=== PATIENT | female | born 1980 | race Caucasian/White ===

== ENCOUNTER 2019-12-08 09:59 | Outpatient (REF) | payer MEDICAID, SELFPAY ==
[2019-12-08 21:41] LABS: Abs Immature Grans 0.02 k/cumm (0.0-0.09); Absolute Basophil Count 0.03 k/cumm (0.0-0.2); Absolute Eosinophil Count 0.27 k/cumm (0.0-0.7); Absolute Lymphocyte Count 2.02 k/cumm (1.2-3.4); Absolute Monocyte Count 0.37 k/cumm (0.11-0.7); Basophils % 0.4; HCT 38.2 % (36.0-46.0); HGB 13.7 g/dL (12.0-15.5); Immature Grans % 0.3 %; Lymphocytes % 30.1; Mean Corp. HGB Concentration 35.9 g/dL (32.0-36.0); Mean Corpuscular Hemoglobin 30.8 pg (27.0-33.0); Mean Corpuscular Volume 85.8 fL (80-95); Mean Platelet Volume 10.5 fL (8.0-11.0); Monocytes % 5.5; Neutrophils % 59.7; Platelet Count 329 x1000/uL (130-400); RBC 4.45 m/cumm (4.00-5.20); RBC Distribution Width 14.1 % (11.7-14.6); White Blood Cell Count 6.71 k/cumm (4.4-10.8)
[2019-12-08 22:35] LABS: ALT 21 U/L (14-59); AST 16 U/L (15-37); Albumin 3.6 g/dL (3.4-5.0); Alkaline Phosphatase 56 U/L (46-116); Anion Gap 13.5 mmol/L (3-11); BUN 10 mg/dL (7-18); Bilirubin, Total 0.2 mg/dL (0.2-1.0); CO2 20.5 mmol/L (21.0-32.0); CREATININE 0.89 mg/dL (0.55-1.02); Calcium 8.7 mg/dL (8.5-10.1); Calculated LDL 88 mg/dL (<100); Chloride 106 mmol/L (98-107); Cholesterol 157 mg/dL (<200); Glucose 91 mg/dL (74-106); HDL Cholesterol 51 mg/dL (40-60); Sodium 140 mmol/L (136-145); TSH (W/Ref FT4) 2.05 uIU/mL (0.36-3.74); Total Protein 7.4 g/dL (6.4-8.2); Triglyceride 93 mg/dL (<150); Vitamin B12 188 pg/mL (193-986)
[2019-12-10 04:31] LABS: Vitamin D 25 Total 25.1 ng/ml (30-100)
== END 2019-12-08 10:19 ==
LOC: NCHCN 09:59
PROVIDERS: Visit Provider Nurse Practitioner Family
DX: F31.9 Bipolar disorder, unspecified (principal)
CPT/HCPCS: 80053; 80061; 82306; 82607; 84443; 85025

== ENCOUNTER 2020-11-28 17:01 | Outpatient (REF) | payer MEDICAID, SELFPAY ==
--- NOTE | 2020-11-28 15:30 | PAPFT_PTH ---
PATIENT: Elsa Amaya LOC: [facility]#:[id number] AGE/SX: 40/F ROOM: RE11/28/[address]: Felicia Ivan : 1980 BED: DIS: 11/28/2020 SPEC #: [id number] RECD: 11/29/20 13:12 STATUS: DANI REKimi #: [id number] SONJA: 11/28/20 15:[address]: Felicia Ivan DEPT: [facility] Cytology RECD BY: Penny Ramirez ENTERED: 11/29/20 13:12 SP TYPE: PAPFT OTHR DR: Maddy Local Tissues: 1 - CX/ENDOCX FOR PAP SMEARS Procedures: PAP THIN PREP/UVM Screening HPV DNA PROBE Comments: [id number]
--- OUTSIDE RECORDS SUMMARY | 2020-11-28 17:06 | XMS_ITS ---
:1980 Author Care Team Providers Name Role Phone [facility] Primary Care Provider Allergies Code Code System Name Reaction Severity Status Onset 397840 RxNorm House Dust ? ? Active ? 009763 RxNorm Mold ? ? Active ? Medications Name Status Start Date Stop Date ? ? desvenlafaxine ER 50 mg tablet,extended release 24 hr Active ? Not available Take 1 tablet every day by oral route. Lamictal 100 mg tablet Active ? Not avail able Take 1 tablet every day by oral route. Ortho Tri-Cyclen (28) Active ? Not availa ble Proair Digihaler 90 mcg/actuation aerosol powder breath act, sen sor Active ? Not available Inhale 2 puffs every 4 hours by inhalation route. Symbicort 160 mcg-4.5 mcg/actuation HFA aerosol inhaler Active ? Not available Inhale 2 puffs twice a day by inhalation route. Problems Name Status Onset Date Source ? 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 Bipolar Disorder Active 12/23/2019 ? Asthma Active 12/23/2019 ? Procedures None recorded. Results Lab Results None recorded. Past Encounters 12/25/2019 Asthma Stephanie Munoz MD: [address] [place] [address] Dr hernandez [facility], [place] [address], Ph. Social History Tobacco Smoking Status Former Smoker Notes: off an d on as teenager Vaccine List Vaccine Type pneumococcal polysaccharide PPV23 06/10/2019 Tdap 06/10/2016 06/10/2016 Plan of Care Reminders Provider Appointments None ? ? recorded. Lab None ? ? recorded. Referral None ? ? recorded. Procedures None ? ? recorded. Surgeries None ? ? recorded. Imaging None ? ? recorded. Vitals Height Weight BMI Blood Pressure 175.26 cm 87.95 kg 28.6 kg/m2 110/60 mm[Hg]
== END 2020-11-28 17:02 | disposition home or self-care (01) ==
LOC: NCHCN 17:01
PROVIDERS: Visit Provider Nurse Practitioner Community Health
DX: Z12.4 Encounter for screening for malignant neoplasm of cervix (principal); Z11.51 Encounter for screening for human papillomavirus (HPV)
CPT/HCPCS: 88142; 87624

== ENCOUNTER 2022-08-03 13:03 | Outpatient (CLI) | payer MEDICAID, SELFPAY ==
--- NOTE | 2022-08-03 | DI.RAD_ITS ---
Exam(s) XR CHEST 2V PA LATERAL EXAM: XR CHEST 2V PA LATERAL CLINICAL HISTORY: COUGH R05.8 ? PNA TECHNIQUE: 2D digital imaging was performed. COMPARISON: No exams were available for comparison FINDINGS: HEART: Normal size. Aorta: Not dilated. PULMONARY VASCULATURE: Normal. LUNGS: Clear. PLEURAL SPACE: No pleural effusion or pneumothorax. BONE:Unremarkable for age. IMPRESSION: No acute abnormality. DATA REPOSITORY: RADIATION DOSE DELIVERED:
== END 2022-08-03 13:23 ==
LOC: DI 13:09
PROVIDERS: PCP Nurse Practitioner Family; Visit Provider Registered Nurse
DX: R05.8 Other specified cough (principal)
CPT/HCPCS: 71046

== ENCOUNTER 2024-03-12 16:19 | Outpatient (REF) | payer MEDICAID, SELFPAY ==
--- OUTSIDE RECORDS SUMMARY | 2024-03-12 16:21 | XMS_ITS | Encounter Summary ---
Author Organization [facility] Address [address] [place] [address] Care Team Providers Care Senior Web Designer Name Role Phone Felicia Ivan ALYSSA Primary Care Provider [phone] Reason for Visit * Reason Onset Date Comments Appointment Related 12/24/2022 Encounter Details Date Type Department Care Team (Late st Contact Info) Description 12/24/2022 Telephone [facility] Dermatology 3rd Floor [address] [id number] Sharri Mistry MD [address] [facility], [address] 5 [place] [address] Appointment Related Social History Tobacco Use Types Packs/Day Years Used Date Smoking Tobacco: Never Smokeless Tobacco: Never Interpersonal Safety Answer Date Record ed Physically Hurt Never 02/14/2020 Verbally Threaten Not on file 02/14/2020 Sex and Gender Information Value Date Recorded Sex Assigned at Not on file Gender Identity Not on file Sexual Orientation Not on file documented as of this encounter Miscellaneous Notes * Telephone Encounter - Kavitha Penn MA - 12/25/2022 0907 EDT Called patient and relayed Sharri Mistry MD would like to see her every couple of years, but at herage, she would like to start screening for elevated potassium once a year. I relayed that lab was ordered yesterday, 12/24/2022. Patient verbalized understanding and had no further questions or concerns. KAVITHA PENN MA 12/25/2022 9:08 * Telephone Encounter - Sharri Mistry MD - 12/24/2022 1608 EDT Sounds good, I can see her every couple of years. At her age we start screening for elevated potassium once a year. I can write for that lab now. Sharri Mistry MD 12/24/2022 16:11 * Telephone Encounter - Anamaria Phillip - 12/24/2022 1020 EDT Patient called to cancel 12/26/2022 acne f/u appointment. Patient states her acne is doing ok and she does not have any concerns at this time. Patient states the spironolactone (ALDACTONE) 100 mg tablet and tretinoin (RETIN-A) 0.025 % cream is working very well for her. Patient is wondering if she will need an appointment in the future to be able to refill these medications. Patient confirmed call back number if needed. documented in this encounter Plan of Treatment Upcoming Encounters Date Type Department Care Team (Late st Contact Info) Description 04/02/2024 14:30 EDT Office Visit [facility] Pulmonology [address] [facility], [place] [address] Ray Samson MD [address] [facility], [address] [place] [address] documented as of this encounter Visit Diagnoses Diagnosis Medication monitoring encounter- Primary Encounter for therapeutic drug monitoring documented in this encounter Care Teams Senior Web Designer Relationship Specialty Start Date End Date Felicia Ivan FNP [address], [address] [place] [address] PCP - General 12/27/20 documented as of this encounter
--- OUTSIDE RECORDS SUMMARY | 2024-03-12 16:21 | XMS_ITS | Encounter Summary ---
Author Organization [facility] Address [address] [place] [address] Care Team Providers Care Plant Custodian Name Role Phone FeleciaFelicia flores LAYSSA Primary Care Provider Reason for Visit * Reason Comments Skin Lesion Skin lesion on leg F BSE room 7 Encounter Details Date Type Department Care Team (Late st Contact Info) Description 12/28/2020 15:40 EDT Office Visit [facility] Dermatology 5th [address] [address] Sharri Mistry MD [address] [place] [address], [address] 5 [place] [address] Molluscum contagiosum (Primary Dx); Acne vulgaris; History of basal cell carcinoma; Scar Social History Tobacco Use Types Packs/Day Years Used Date Smoking Tobacco: Never Smokeless Tobacco: Never Interpersonal Safety Answer Date Record ed Physically Hurt Never 02/14/2020 Verbally Threaten Not on file 02/14/2020 Sex and Gender Information Value Date Recorded Sex Assigned at Not on file Gender Identity Not on file Sexual Orientation Not on file documented as of this encounter Ordered Prescriptions Prescription Sig Dispensed Refills Start Date End Da te tretinoin (RETIN-A) 0.025 % cream Apply a pea sized amount to the whole face twice weekly at night, can increase to nightly as tolerated 45 g 4 12/28/2020 spironolactone (ALDACTONE) 100 mg tabletIndications:Acne vulgaris Take 1 Tablet by mouth daily. 30 Tablet 5 12/28/2020 11/17/2021 documented in this encounter Progress Notes * Michelle Ly MD - 12/28/2020 1500 EDT Dermatology Outpatient Visit Note Chief Complaint Patient presents with ??? Skin Lesion Skin lesion on leg FBSE room 7 Dermatologic History: History of BCC Last Dermatology office visit: 02/2020 SUBJECTIVE Ms. Amaya is a 40 y.o. female who presents for follow up for the complaint listed above. She has the history of molluscum that was biopsied. When asked, she is not around children and doesn't teach. She did have an HIV test after she was with her current partner which was negative. 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 For acne used the tretinoin twice but this made her face red and dry so she stopped. Spironolactonehas been working well. Left protestant and left nasal ala. Per referral notes 02/25/2020: hx of BCC left nose and chin removed surgically. OBJECTIVE VS: There were no vitals taken for this visit. 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 Cutaneous full body examination including the hair, scalp, face, eyelids, lips, neck, chest, back, abdomen, all four extremities, hands, feet, digits and nails was performed.The examination was significant for the following: -Left nasal ala and left protestant pink to skin colored papules with central keratin/hyperkeratotic core -Acne scars scattered on face -Few closed comedones scattered on face -Well healed surgical scar on the left infraorbital crease ASSESSMENT/PLAN 1. Acne vulgaris - comedonal and hormonal. Hormonal component under good control, still with comedones and scarring that would benefit from tretinoin. -Recommend starting tretinoin 0.025% cream, a pea sized amount to the whole face three nights per week for the first 2 weeks, then increase to nightly as tolerated. If too red/dry/peeling recommend decreasing to once weekly. -Side effects of redness, dryness and peeling were discussed - Continue spironolactone (ALDACTONE) 100 mg tablet; Take 1 Tablet by mouth daily. Dispense: 30 Tablet; Refill: 5 2. Molluscum contagiosum - Unclear etiology possibly spreading among self. No immunodeficiency other than IgA which should not be playing a role -Recommend using the tretinoin 0.05% pt already has to irritate the lesion and avoid measure that would spread the viral core -Plan to f/u in 6 months with tretinoin tx then reassess 3. History of basal cell carcinoma 4. Scar -No clinical evidence of recurrence. The importance of sunscreen use, sun avoidance and self-examination was discussed, of which the patient showed a good understanding. Return in about 6 months (around 06/30/2021) for acne, history of skin cancer. She will f/u as planned or in the interim should problems arise. Sharri Mistry MD 12/28/2020 21:18 * Jorge Domingo MA - 12/28/2020 1540 EDT Review of Systems Constitutional: Negative for fatigue, fever and unexpected weight change. HENT: Negative for mouth sores. Eyes: Negative for pain. Respiratory: Negative for cough and shortness of breath. Cardiovascular: Negative for chest pain and palpitations. Gastrointestinal: Negative for abdominal pain, blood in stool, constipation, diarrhea, nausea and vomiting. Genitourinary: Negative for dysuria, frequency and hematuria. Musculoskeletal: Negative for myalgias, joint swelling, arthralgias and muscle stiffness in the morning. Skin: Negative for rash. Neurological: Negative for numbness and headaches. Endo/Heme/Allergies: Does not bruise/bleed easily. Psychiatric/Behavioral: Negative for sleep disturbance. The patient is not nervous/anxious. JORGE DOMINGO MA 12/28/2020 15:50 documented in this encounter Plan of Treatment Upcoming Encounters Date Type Department Care Team (Late st Contact Info) Description 04/02/2024 14:[address] [facility] Pulmonology [address] [facility], [place] [address] Ray Samson MD [address] [place] [address], [address] [place] [address] documented as of this encounter Visit Diagnoses Diagnosis Molluscum contagiosum- Primary Acne vulgaris Other acne History of basal cell carcinoma Personal history of other malignant neoplasm of skin Scar Scar condition and fibrosis of skin documented in this encounter Discontinued Medications Medication Sig Discontinue Reason Start Date End Da te tretinoin (RETIN-A) 0.05 % creamIndications:Sebac eous hyperplasia,Acne vulgaris Apply topically to affected area at bedtime. Sparing folds of the nose and eyelids. Do not apply immediately after washing, may sting. Alternate therapy 03/09/2020 12/28/2020 spironolactone (ALDACTONE) 100 mg tabletIndications:Acne vulgaris TAKE 1 TABLET BY MOUTH DAILY Reorder 11/17/2020 12/28/2020 documented as of this encounter Historical Medications * This list may reflect changes made after this encounter. Medication Sig Dispensed Refills Start Date End Date acetylcysteine (P-DACRHW-A-CYSTEINE MISC) by misc (non-drug; combo route) route. norethindrone-e.estradiol- iron ( ORAL) Take by mouth. added in this encounter Care Teams Plant Custodian Relationship Specialty Start Date End Date Felicia Ivan FNP [employer], [address] [place] [address] PCP - General 12/27/20 documented as of this encounter
--- OUTSIDE RECORDS SUMMARY | 2024-03-12 16:21 | XMS_ITS | Encounter Summary ---
Author Organization [facility] Address [address] [place] [address] Care Team Providers Care Firer Glost Kiln Name Role Phone Felicia Ivan ALYSSA Primary Care Provider [phone] Reason for Visit * Reason Onset Date Comments Appointment Related 02/13/2023 Encounter Details Date Type Department Care Team (Late st Contact Info) Description 02/13/2023 Telephone [facility] [address] [place], [place] [address] Elvi Preciado, CYN Appointment Related Social History Tobacco Use Types [...] encounter Miscellaneous Notes * Telephone Encounter - Rani Echavarria - 02/19/2023 1001 EDT Spoke with pt last week. She was confused between Ortho and Spine. She is all set for the 03/08/23 appt, with her work. * Telephone Encounter - Elvi Preciado RN - 02/13/2023 0854 EDT Pt reports that she was unaware that she had an appointment on 02/22 as she thought her injection was scheduled on 03/19 which is actually her follow up with Sharona Moore. She states she is unable to keep the appointment due to work commitments and expresses frustration that she was not aware of 02/22 appointment so she could take time off from work. Apologized to patient regarding scheduling confusion. Please call to reschedule. Thank you. documented in this encounter Plan of Treatment Upcoming Encounters Date Type Department Care Team (Late st Contact Info) Description 04/02/2024 14:30 EDT Office Visit [facility] Pulmonology [address] [facility], [place] [address] Ray Samson MD [address] [facility], [address] [place] [address] documented as of this encounter Visit Diagnoses Not on filedocumented in this encounter Care Teams Firer Glost Kiln Relationship Specialty Start Date End Date Felicia Ivan FNP [address] [place] [address], [address] [place], [place] [id number] PCP - General 12/27/20 documented as of this encounter
--- OUTSIDE RECORDS SUMMARY | 2024-03-12 16:21 | XMS_ITS | Encounter Summary ---
Author Organization [facility] Address [address] [place] [address] Care Team Providers Care Caser In Name Role Phone Felicia Ivan ALYSSA Primary Care Provider [phone] Reason for Visit * Reason Comments Follow-up Skin lesions with co ncern for persistent molluscum. Encounter Details Date Type Department Care Team (Late st Contact Info) Description 12/20/2021 15:40 EDT Office Visit [facility] Dermatology 5th Floor [address] [address] Sharri Mistry MD [address] [place] [address], [address] [place] [address] Molluscum contagiosum (Primary Dx); Acne vulgaris; History of skin cancer; Scar; Milial cyst Social History Tobacco Use Types Packs/Day Years [...] Dispensed Refills Start Date End Da te spironolactone (ALDACTONE) 100 mg tabletIndications:Acne vulgaris Take 1 Tablet by mouth daily. 30 Tablet 11 12/20/2021 documented in this encounter Progress Notes * Rhianna Santoyo MD - 12/20/2021 1540 EDT Dermatology Outpatient Visit Note Chief Complaint Patient presents with ??? Follow-up Skin lesions with concern for persistent molluscum. Dermatologic History: History of BCC Last Dermatology office visit: 12/28/20 SUBJECTIVE Ms. Amaya is a 41 y.o. female who presents for follow up for acne. She is using the spironolactone and tretinoin twice per week. She had a breakout around 4 weeks ago related to stress. She is concerned about persistent molluscum contagiosum on her face. She states that areas that she uses tretinoin on often times goes away and then new lesions will reappear. She has two spots on her right cheek she is concerned that they are molluscum lesions. Denies any other changing pigmented lesions. Denies any other new painful, itching, or bleeding lesions. For full Medical, Surgical, Family, and Social histories, please see the History section of this encounter in the electronic chart which I have personally reviewed. For Review of Systems, Medications and Allergies, please see those sections of this encounter in the electronic chart which I have also reviewed. She has a current medication list which includes the following prescription(s): acetylcysteine, budesonide/formoterol fumarate, desvenlafaxine succinate, lamotrigine, norethindrone, norethindrone-e.estradiol-iron, spironolactone, and tretinoin. She has No Known Allergies. OBJECTIVE VS: There were no vitals taken for this visit. Ms. Amaya is healthy and well developed, well-nourished female sitting on the examination table with a normal affect. She is alert and oriented to person, place and time. She has Malone type III skin. Cutaneous full body examination including the hair, scalp, face, eyelids, lips, neck, chest, back, abdomen, genitalia, all four extremities, hands, feet, digits and nails was performed.The examination was normal with the addition of the following comments: There were no lesions suspicious for malignancy. - left chin: umbilicated dome shaped papule - Creamy-white, symmetric dome shaped firm papules scattered on the right cheek - LUISA of core of umbilicated papule consistent with molluscum - Face: few closed and open comedones ASSESSMENT/PLAN 1. Acne vulgaris - comedonal and hormonal. Hormonal component under good control, still with comedones and milia and scarring that would benefit from tretinoin. - Recommend starting tretinoin 0.025% cream, 3x per week and work up to nightly. - Side effects of redness, dryness and peeling were discussed - Continue spironolactone (ALDACTONE) 100 mg tablet; Take 1 Tablet by mouth daily -Can get milia of right cheek extracted if desired ?? 2. Molluscum contagiosum - on lesion seen on on LUISA, on lesion on exam today - Unclear etiology possibly spreading among self. No immunodeficiency other than IgA which should not be playing a role -Recommend using the tretinoin 0.05% pt already has to irritate the lesion and avoid measure that would spread the viral core -Removed core today ?? 3. History of basal cell carcinoma 4. Scar -No clinical evidence of recurrence.??The importance of sunscreen use, sun avoidance and self-examination was discussed, of which the patient showed a good understanding. Return in about 1 year (around 12/20/2022) for acne and FBSE. She will f/u as planned or in the interim should problems arise. Rhianna Santoyo MD 12/21/2021 8:11 Attestation Statement: I saw and examined the patient with the resident/fellow. I agree with the findings and plan of care documented in the resident's/fellow's note. I performed the LUISA. Sharri Mistry MD 8:13 12/21/2021 documented in this encounter Plan of Treatment Upcoming Encounters Date Type Department Care Team (Late st Contact Info) Description 04/02/2024 14:30 EDT Office [facility] [place] [address] [facility], [place], [place] [address] Ray Samson MD [address] [place] [address], [address] [place] [address] documented as of this encounter Visit Diagnoses Diagnosis Molluscum contagiosum- Primary Acne vulgaris Other acne History of skin cancer Personal history of other malignant neoplasm of skin Scar Scar condition and fibrosis of skin Milial cyst Sebaceous cyst documented in this encounter Discontinued Medications Medication Sig Discontinue Reason Start Date End Da te spironolactone (ALDACTONE) 100 mg tabletIndications:Acne vulgaris TAKE ONE TABLET BY MOUTH ONE TIME DAILY Reorder 11/17/2021 12/20/2021 documented as of this encounter Care Teams Caser In Relationship Specialty Start Date End Date Felicia Ivan FNP [facility] [employer], [address] [place] [address] PCP - General 12/27/20 documented as of this encounter
--- OUTSIDE RECORDS SUMMARY | 2024-03-12 16:21 | XMS_ITS | Referral Summary ---
Author Organization [facility] Address [address] [place] [address] Care Team Providers Care Bear Keeper Name Role Phone Felicia Ivan ALYSSA Primary Care Provider [phone] Encounters Date Type Department Care Team Description 01/23/2024 13:58 EDT - 01/23/2024 23:59 EDT Hospital Encounter [facility] [address] [place] [address] Room 1, [facility] Moderate persistent asthma without complication Discharge Disposition: Home or Self Care from Last 3 Months Allergies No known active allergies Medications Medication Sig Dispensed Refills Start Date End Date Status desvenlafaxine succinate (PRISTIQ) 50 mg SR tablet Take 1 Tablet by mouth daily. Active lamoTRIgine (LAMICTAL) 100 mg tablet Take 100 mg by mouth daily. Active NORETHINDRONE, CONTRACEPTIVE, ORAL Take by mouth. A ctive budesonide/formotero l fumarate (SYMBICORT INHALATION) Inhale as directed. Active norethindrone-e.estr adiol-iron ( ORAL) Take by mouth. Active acetylcysteine (K-QWIPUO-X-CYSTEINE MISC) by misc (non-drug; combo route) route. Active tretinoin (RETIN-A) 0.025 % cream Apply a pea sized amount to the whole face twice weekly at night, can increase to nightly as tolerated 45 g 4 12/28/2020 Active spironolactone (ALDACTONE) 100 mg tabletIndications:Ac ne vulgaris Take 1 Tablet by mouth daily. 30 Tablet 11 12/20/2021 Active Additional Information Patient not taking.Reported on 05/20/2023 L-METHYLFOLATE 15 mg tablet 11/11/2022 Active VENTOLIN HFA 90 mcg/actuation inhaler 09/30/2022 Active gabapentin (NEURONTIN) 100 mg capsuleIndications:L umbar disc herniation with radiculopathy Take 1 Capsule by mouth 3 times daily. 90 Capsule 2 05/24/2023 Active DENTA 5000 PLUS 1.1 % cream TOPICALLY APPLY A PEA SIZED AMOUNT OF TOOTHPASTE ON TOOTHBRUSH & BRUSH FOR 2 MINUTES. SPIT OUT EXCESS. DO NOT EAT / DRINK OR RINSE FOR AT 07/28/2023 Active Active Problems No known active problems Social History Tobacco Use Types Packs/Day Years Used Date Smoking Tobacco: Never Smokeless Tobacco: Never Tobacco Cessation:Counseling Given: Not Answered Alcohol Use Standard Drinks/Week Comments Yes 2 (1 standard drink = 0.6 oz pur e alcohol) 2-3 drinks a week Interpersonal Safety Answer Date Record ed Physically Hurt Never 02/14/2020 Verbally Threaten Not on file 02/14/2020 Sex and Gender Information Value Date Recorded Sex Assigned at Not on file Gender Identity Not on file Sexual Orientation Not on file Last Filed Vital Signs Vital Sign Reading Time Taken Comments Blood Pressure 128/80 08/19/2023 0939 EDT Pulse 90 08/19/2023 0939 EDT Temperature 36.3 ??C (97.4 ??F) 03/08/2023 1335 EDT Respiratory Rate 16 03/08/2023 1335 EDT Oxygen Saturation 99% 08/19/2023 0939 EDT Inhaled Oxygen Concentration - - Weight 82.6 kg (182 lb) 08/19/2023 0939 EDT Height 175.3 cm (5' 9) 08/19/2023 0939 EDT Body Mass Index 26.88 08/19/2023 0939 EDT Plan of Treatment Upcoming Encounters Date Type Department Care Team (Late st Contact Info) Description 04/02/2024 14:30 EDT Office Visit [facility] Pulmonology [address] [facility], [place], [place] [address] Ray Samson MD [address] [facility], [address] [place] [address] Procedures Procedure Name Priority Date/Time Associated Diagnosis Comments PULMONARY FUNCTION TESTING Routine 01/23/2024 14:02 EDT Moderate persistent asthma without complication from Last 3 Months Results * PULMONARY FUNCTION TESTING (01/23/2024 14:02 EDT) 01/23/2024 14:0 2 EDT Madeline Hargrove PFT ORDERABLES [facility] PULMONARY FUNCTION TESTING from Last 3 Months Care Teams Bear Keeper Relationship Specialty Start Date End Date Felicia Ivan FNP [address], [address] [place] [address] PCP - General 12/27/20
--- OUTSIDE RECORDS SUMMARY | 2024-03-12 16:21 | XMS_ITS | Encounter Summary ---
Author Organization [facility] Address [address] [place] [address] Care Team Providers Care Product/Device Technologist Name Role Phone Felicia Ivan ALYSSA Primary Care Provider [phone] Reason for Visit * Reason Onset Date Comments Appointment Related 11/30/2022 Encounter Details Date Type Department Care Team (Late st Contact Info) Description 11/30/2022 Telephone [facility] [address] [place], [place] [address] Dexter Marshall MD [address] [place] [address] [address] [place] [address] Appointment Related Social History Tobacco Use Types [...] * Telephone Encounter - Rani Echavarria - 02/15/2023 1103 EDT Called pt back, and discuused that the appointment that she thought she had was actually for her follow up with Ortho. I gave her both numbers to Ortho and Pain clinic, so she was aware of the two different locations. She is now scheduled for 03/08/23, and will reach out to set up transportation with GMT * Telephone Encounter - Rani Echavarria - 11/30/2022 1714 EDT Reason for Call: Appointment Related Summary/Symptoms: Schedule LESI Appointment Offered? Yes 02/22 Does Nurse Need to Follow Up? No Follow Up Needed? LMM TO CALL BACK TO CONFIRM, AND CAN PUT ON WAIT LIST THEN WELL. Rani Echavarria 11/30/2022 17:14 documented in this encounter Plan of Treatment Upcoming Encounters Date Type Department Care Team (Late st Contact Info) Description 04/02/2024 14:30 EDT Office Visit [facility] [address] [facility], [place] [address] Ray Samson MD [address] [place] [address], [address] [place] [address] documented as of this encounter Visit Diagnoses Not on filedocumented in this encounter Care Teams Product/Device Technologist Relationship Specialty Start Date End Date Felicia Ivan FNP [address] [facility], [address] [place] [address] PCP - General 12/27/20 documented as of this encounter
--- OUTSIDE RECORDS SUMMARY | 2024-03-12 16:21 | XMS_ITS | Encounter Summary ---
Author Organization [facility] Address [address] [place] [address] Care Team Providers Care Cashier General Name Role Phone Felicia Ivan Primary Care Provider [phone] Encounter Details Date Type Department Care Team (Late st Contact Info) Description 05/24/2023 Telephone [facility] Orthopedics & Spine Medicine [address], [address] [place] [address] Angelique Gamez RN Social History Tobacco Use Types Packs/Day Years Used Date Smoking Tobacco: Never Smokeless Tobacco: Never Alcohol Use Standard Drinks/Week Comments Yes 2 [...] on file documented as of this encounter Plan of Treatment Upcoming Encounters Date Type Department Care Team (Late st Contact Info) Description 04/02/2024 14:30 EDT Office Visit [facility] Pulmonology [address] [facility], [facility] [address] [place], [place] [address] Ray Samson MD [address] [facility], [facility] 5 [place] [address] documented as of this encounter Visit Diagnoses Not on filedocumented in this encounter Care Teams Cashier General Relationship Specialty Start Date End Date Felicia Ivan FNP [address], [address] [place] [address] PCP - General 12/27/20 documented as of this encounter
--- OUTSIDE RECORDS SUMMARY | 2024-03-12 16:21 | XMS_ITS | Encounter Summary ---
Author Organization [facility] Address [address] [place] [address] Care Team Providers Care Head Of Cytogenetics Name Role Phone Felicia Ivan ALYSSA Primary Care Provider Reason for Referral * Test (Routine/Next Available) - Authorization Not Required Specialty Diagnoses / Procedures [facility] Referred To Contact Diagnoses Moderate persistent asthma without complication Procedures PULMONARY FUNCTION TESTING Madeline Hargrove [address] [place] [address] Referral ID Status Reason Start Date Expiration Date Visits Requested Visits Authorized [id number] Authorization Not Required 11/20/2023 1 1 Encounter Details Date Type Department Care Team (Latest Contact Info) Description 11/20/2023 Transcribe Orders [facility] [address] [place], [place] [address] Madeline Hargrove [address] [place], [place] [id number] Moderate persistent asthma without complication (Primary Dx) Social History Tobacco Use Types Packs/Day Years [...] Info) Description 04/02/2024 14:30 EDT Office Visit [facility] Pulmonology 130 [facility], [place] [address] Ray Samson MD 111 [facility], [facility] 5 [place] [address] documented as of this encounter Results * PULMONARY FUNCTION TESTING (01/23/2024 14:02 EDT) 01/23/2024 14:0 2 EDT Madeline Hargrove PFT ORDERABLES [facility] PULMONARY FUNCTION TESTING documented in this encounter Visit Diagnoses Diagnosis Moderate persistent asthma without complication- Primary Unspecified asthma documented in this encounter Care Teams Head Of Cytogenetics Relationship Specialty Start Date End Date Felicia Ivan FNP [address], [address] [place] [address] PCP - General 12/27/20 documented as of this encounter
--- OUTSIDE RECORDS SUMMARY | 2024-03-12 16:21 | XMS_ITS | Encounter Summary ---
Author Organization [facility] Address [address] [place] [address] Care Team Providers Care Manager Of Administration Name Role Phone Felicia Ivan ALYSSA Primary Care Provider [phone] Reason for Visit * Reason Comments Pain Encounter Details Date Type Department Care Team (Late st Contact Info) Description 08/19/2023 9:30 EDT Office Visit [facility] Orthopedics & Spine Medicine [address], [address] [place], [place] [id number] Sharona Moore PA-C [address] [facility] [address] [place], [place] [id number] Lumbar disc herniation with radiculopathy (Primary Dx) Social History Tobacco Use Types [...] on file documented as of this encounter Last Filed Vital Signs Vital Sign Reading Time Taken Comments Blood Pressure 128/80 08/19/2023 0939 EDT Pulse 90 08/19/2023 0939 EDT Temperature - - Respiratory Rate - - Oxygen Saturation 99% 08/19/2023 0939 EDT Inhaled Oxygen Concentration - - Weight 82.6 kg (182 lb) 08/19/2023 0939 EDT Height 175.3 cm (5' 9) 08/19/2023 0939 EDT Body Mass Index 26.88 08/19/2023 0939 EDT documented in this encounter Progress Notes * Sharona Moore PA-C - 08/19/2023 0930 EDT 08/19/2023 PATIENT: Elsa Amaya Primary Care Provider: Felicia Ivan [facility] [address], [address] [place] [address] Referring Provider: No referring provider defined for this encounter. Phone: N/A Fax: CHIEF COMPLAINT Pain of the Lower Back HISTORY OF PRESENT ILLNESS Elsa Amaya is a very pleasant 43 y.o. female who presents with low back pain radiating into the left LE pain with associated numbness in the foot only. She developed leg symptoms in August and back pain developing later. She completed PT 3 weeks ago and continues HEP without significant benefit. She stands throughout the appointment as she has been unable to sit. She reports her PCP did not offer her any medications but she has been taking NSAIDs with mild improvement. 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 The patient presents for follow up and reports continued improvement with HEP and injection. She reports a 1/10 pain today that can increase to 4/10. Pain is worse when getting up from a low positionor getting out of a car. Treatments to date for this complaint have included: Injection History: 03/08/2023: L5-S1 TFESI on the left [x] Physical therapy [] child care attendant or massage therapy [x] Home exercise program [x] Anti-inflammatories [] Neuropathic pain medications [] Muscle relaxer [] Steroids [] Opioids [] Pain management evaluation [] Injections or Radiofrequency Ablations [] TENS unit [] Alternative modalities (acupuncture, biofeedback, etc.) MEDICAL HISTORY Patient has no past medical history on file. SURGICAL HISTORY Patient has no past surgical history on file. MEDICATIONS Patient has a current medication list which includes the following prescription(s): acetylcysteine,budesonide/formoterol fumarate, denta 5000 plus, desvenlafaxine succinate, gabapentin, l-methylfolate, lamotrigine, methocarbamol, norethindrone, norethindrone-e.estradiol-iron, spironolactone, tretinoin, and ventolin hfa. ALLERGIES Patient has No Known Allergies. FAMILY HISTORY Patient's family history is not on file. SOCIAL HISTORY Patient reports that she has never smoked. She has never used smokeless tobacco. She reports current alcohol use of about 2.0 - 3.0 standard drinks of alcohol per week. She reports that she does not currently use drugs. REVIEW OF SYSTEMS Constitutional: Positive for activity change. Musculoskeletal: Positive for back pain, gait problem and myalgias. Neurological: Positive for weakness and numbness. All other systems reviewed and are negative. DIAGNOSTIC DATA VITALS height is 175.3 cm (69) and weight is 82.6 kg (182 lb). Her blood pressure is 128/80 and her pulseis 90. Her oxygen saturation is 99%. PHYSICAL EXAM Nursing note and vitals reviewed.Vitals and nursing note reviewed. Constitutional: Appearance: Normal appearance. HENT: Head: Normocephalic and atraumatic. Nose: Nose normal. Mouth/Throat: Mouth: Mucous membranes are moist. Eyes: Pupils: Pupils are equal, round, and reactive to light. Cardiovascular: Rate and Rhythm: Normal rate and regular rhythm. Pulses: Normal pulses. Pulmonary: Effort: Pulmonary effort is normal. Musculoskeletal: Lumbar back: No spasms or tenderness. Normal range of motion. Negative right straight leg raise test and negative left straight leg raise test. Skin: General: Skin is warm and dry. Capillary Refill: Capillary refill takes less than 2 seconds. Neurological: Mental Status: She is alert. Mental status is at baseline. Sensory: Sensation is intact. Motor: Weakness (mild weakness with bilateral knee extension 5-/5 otherwise 5/5) present. Gait: Gait is intact. Comments: Able to walk on heels and toes Psychiatric: Mood and Affect: Mood normal. Behavior: Behavior normal. Judgment: Judgment normal. IMAGING I have personally reviewed and interpreted the imaging directly. The findings were discussed in detail with the patient using models and images. MRI lumbar 11/02/22: There is a left disc herniation obliterating the lateral recess and causing mild central canal stenosis at L5-S1. There is L4-5 facet arthropathy. There is mild lumbar scoliosis. X-ray entire spine: There is S-shaped scoliosis. Thoracic measures 8 degrees while the thoracolumbar measures 14 degrees. Lumbar x-ray 11/16/22: There are multi-level degenerative changes and scoliosis noted. DIAGNOSIS The encounter diagnosis was Lumbar disc herniation with radiculopathy. ASSESSMENT/PLAN Elsa was seen today for pain. Diagnoses and all orders for this visit: Lumbar disc herniation with radiculopathy Other orders - DENTA 5000 PLUS 1.1 % cream; TOPICALLY APPLY A PEA SIZED AMOUNT OF TOOTHPASTE ON TOOTHBRUSH &BRUSH FOR 2 MINUTES. SPIT OUT EXCESS. DO NOT EAT / DRINK OR RINSE FOR AT The patient presents to the office secondary to low back pain with radiation into the left LE with associated numbness. This has improved from onset with more mild residual symptoms that feel manageable with HEP. She has continued gabapentin daily. Recommend discontinuing this if tolerated. Should she develop new or worsening symptoms, recommend follow up. The risks and benefits of these treatments were discussed today in detail. The patient expressed understanding of these risks and is agreeable with proceeding with this plan of care. Sharona Moore PA-C [facility] [address] [place] [address] [place] [address] documented in this encounter Plan of Treatment Upcoming Encounters Date Type Department Care Team (Late st Contact Info) Description 04/02/2024 14:30 EDT [facility] Visit [facility] 130 [facility], [place] [address] Ray Samson MD 111 [facility], [address] [place] [phone] documented as of this encounter Visit Diagnoses Diagnosis Lumbar disc herniation with radiculopathy- Primary Displacement of lumbar intervertebral disc without myelopathy documented in this encounter Discontinued Medications Medication Sig Discontinue Reason Start Date End Da te methocarbamoL (ROBAXIN) 500 mg tabletIndications:Lumbar disc herniation with radiculopathy Take 2 Tablets by mouth 4 times daily as needed for Muscle Spasms. Patient Stopped Taking 11/16/2022 08/19/2023 documented as of this encounter Historical Medications * This list may reflect changes made after this encounter. Medication Sig Dispensed Refills Start Date End Date DENTA 5000 PLUS 1.1 % cream TOPICALLY APPLY A PEA SIZED AMOUNT OF TOOTHPASTE ON TOOTHBRUSH & BRUSH FOR 2 MINUTES. SPIT OUT EXCESS. DO NOT EAT / DRINK OR RINSE FOR AT 07/28/2023 added in this encounter Care Teams Manager Of Administration Relationship Specialty Start Date End Date Felicia Ivan FNP [facility] [employer], [address] [place] [address] PCP - General 12/27/20 documented as of this encounter
--- OUTSIDE RECORDS SUMMARY | 2024-03-12 16:21 | XMS_ITS | Encounter Summary ---
Author Organization [facility] Address [address] [place] [address] Care Team Providers Care Char Conveyor Tender Cellar Name Role Phone FeleciaFelicia flores ALYSSA Primary Care Provider Reason for Referral * Test (Routine/Next Available) - Authorization Not Required Specialty Diagnoses / Procedures Referred By Martiac t Referred To Contact Diagnoses Moderate persistent asthma without complication Procedures PULMONARY FUNCTION TESTING Madeline Hargrove [address] [place] [address] Referral ID Status Reason Start Date Expiration Date Visits Requested Visits Authorized [id number] Authorization Not Required 11/20/2023 1 1 Reason for Visit * Test (Routine/Next Available) - Authorization Not Required Specialty Diagnoses / Procedures Referred By Tari edwards Referred To Contact Diagnoses Moderate persistent asthma without complication Procedures PULMONARY FUNCTION TESTING Madeline Hargrove [address] [place] [address] Referral ID Status Reason Start Date Expiration Date Visits Requested Visits Authorized [id number] Authorization Not Required 11/20/2023 1 1 Encounter Details Date Type Department Care Team (Latest Contact Info) Description 01/23/2024 13:58 EDT - 01/23/2024 23:59 EDT Hospital Encounter [facility] [address] [place] [address] Room 1, [facility] Moderate persistent asthma without complication Discharge Disposition: Home or Self Care Social History Tobacco Use Types Packs/Day Years [...] on file documented as of this encounter Medications at Time of Discharge Medication Sig Dispensed Refills Start Date End Date acetylcysteine (I-[id number]-CYSTEINE MISC) by misc (non-drug; combo route) route. budesonide/formoterol fumarate (SYMBICORT INHALATION) Inhale as directed. DENTA 5000 PLUS 1.1 % cream TOPICALLY APPLY A PEA SIZED AMOUNT OF TOOTHPASTE ON TOOTHBRUSH & BRUSH FOR 2 MINUTES. SPIT OUT EXCESS. DO NOT EAT / DRINK OR RINSE FOR AT 07/28/2023 desvenlafaxine succinate (PRISTIQ) 50 mg SR tablet Take 1 Tablet by mouth daily. gabapentin (NEURONTIN) 100 mg capsuleIndications:Lumba r disc herniation with radiculopathy Take 1 Capsule by mouth 3 times daily. 90 Capsule 2 05/24/2023 L-METHYLFOLATE 15 mg tablet 11/11/2022 lamoTRIgine (LAMICTAL) 100 mg tablet Take 100 mg by mouth daily. NORETHINDRONE, CONTRACEPTIVE, ORAL Take by mouth. norethindrone-e.estradio l-iron (JUNEL FE 24 ORAL) Take by mouth. spironolactone (ALDACTONE) 100 mg tabletIndications:Acne vulgaris Take 1 Tablet by mouth daily. 30 Tablet 11 12/20/2021 tretinoin (RETIN-A) 0.025 % cream Apply a pea sized amount to the whole face twice weekly at night, can increase to nightly as tolerated 45 g 4 12/28/2020 VENTOLIN HFA 90 mcg/actuation inhaler 09/30/2022 documented as of this encounter Discharge Disposition Disposition Code Departure Means Destination Home or Self Care documented in this encounter Progress Notes * Christiane Menjivar, RT - 01/23/2024 1400 EDT Testing was performed and recorded in yeppt. Please see complete report in Procedures. documented in this encounter Plan of Treatment Upcoming Encounters Date Type Department Care Team (Britney st Contact Info) Description 04/02/2024 14:30 EDT Office Visit [facility] Pulmonology 130 [facility], [place] [address] Ray Samson MD 111 [facility] 5 [place] [address] documented as of this encounter Procedures Procedure Name Priority Date/Time Associated Diagnosis Comments PULMONARY FUNCTION TESTING Routine 01/23/2024 14:02 EDT Moderate persistent asthma without complication documented in this encounter Results * PULMONARY FUNCTION TESTING (01/23/2024 14:02 EDT) 01/23/2024 14:0 2 EDT Madeline Hargrove PFT ORDERABLES [facility] PULMONARY FUNCTION TESTING documented in this encounter Visit Diagnoses Diagnosis Moderate persistent asthma without complication Unspecified asthma documented in this encounter Care Teams Char Conveyor Tender Cellar Relationship Specialty Start Date End Date Felicia Ivan FNP [address] [facility], [address] [place], [place] [address] PCP - General 12/27/20 documented as of this encounter
--- OUTSIDE RECORDS SUMMARY | 2024-03-12 16:21 | XMS_ITS | Encounter Summary ---
Author Organization [facility] Address [address] [place] [address] Care Team Providers Care Soldering Machine Operator Automatic Name Role Phone Hernando Kumari MD Primary Care Provider [phone] Reason for Visit * Reason Comments Other Encounter Details Date Type Department Care Team (Late st Contact Info) Description 11/17/2020 Refill [facility] [address] [address] Sharri Mistry MD [address] [place] [address], [address] [place] [address] Other Social History Tobacco Use Types Packs/Day Years [...] vulgaris TAKE 1 TABLET BY MOUTH DAILY 30 Tab 1 11/17/2020 12/28/2020 documented in this encounter Miscellaneous Notes * Telephone Encounter - Jorge Gardiner MA - 11/17/2020 0934 EDT Medication: spironoloactone 100mg Diagnosis: Acne Last Office Visit: 03/09/2020 Next Office Visit: 12/28/2020 Last Refill: 09/13/2020 documented in this encounter Plan of Treatment Upcoming Encounters Date Type Department Care Team (Late st Contact Info) Description 04/02/2024 14:30 EDT Office Visit [facility] Pulmonology 130 [facility], [place] [address] Ray Samson MD 111 [facility] 5 [place] [address] documented as of this encounter Visit Diagnoses Diagnosis Acne vulgaris- Primary Other acne documented in this encounter Discontinued Medications Medication Sig Discontinue Reason Start Date End Da te spironolactone (ALDACTONE) 100 mg tabletIndications:Acne vulgaris TAKE 1 TABLET BY MOUTH DAILY 09/13/2020 11/17/2020 documented as of this encounter Care Teams Soldering Machine Operator Automatic Relationship Specialty Start Date End Date Hernando Kumari MD [facility] [employer] [address] [place] [phone] PCP - General 08/09/19 12/26/20 documented as of this encounter
--- OUTSIDE RECORDS SUMMARY | 2024-03-12 16:21 | XMS_ITS | Encounter Summary ---
Author Organization [facility] Address [address] [place] [address] Care Team Providers Care Licensed Insurance Agent Name Role Phone Felicia Ivan ALYSSA Primary Care Provider Reason for Visit * Reason Comments Other Encounter Details Date Type Department Care Team (Late st Contact Info) Description 11/16/2021 Refill [facility] D[facility]at[facility] 5th [address] [id number] Sharri Mistry MD [address] [place] [address], [address] [place] [address] Other Social History Tobacco Use [...] ONE TABLET BY MOUTH ONE TIME DAILY 30 Tablet 11/17/2021 12/20/2021 documented in this encounter Plan of Treatment Upcoming Encounters Date Type Department Care Team (Late st Contact Info) Description 04/02/2024 14:30 EDT Office Visit [facility] [place] 130 [facility], [place], [place] [address] Ray Samson MD [address] [facility], [address] [place] [address] documented as of this encounter Visit Diagnoses Diagnosis Acne vulgaris- Primary Other acne documented in this encounter Discontinued Medications Medication Sig Discontinue Reason Start Date End Da te spironolactone (ALDACTONE) 100 mg tabletIndications:Acne vulgaris Take 1 Tablet by mouth daily. 12/28/2020 11/17/2021 documented as of this encounter Care Teams Licensed Insurance Agent Relationship Specialty Start Date End Date Felicia Ivan FNP [address] [facility], [address] [place] [address] PCP - General 12/27/20 documented as of this encounter
--- OUTSIDE RECORDS SUMMARY | 2024-03-12 16:21 | XMS_ITS | Encounter Summary ---
Author Organization [facility] Address [address] [place] [address] Care Team Providers Care Silverware Etcher Name Role Phone Felicia Ivan ALYSSA Primary Care Provider [phone] Reason for Visit * Reason Onset Date Comments Appointment Related 02/13/2023 Medication Management 02/13/2023 Encounter Details Date Type Department Care Team (Late st Contact Info) Description 02/13/2023 Telephone [facility] [address] [place] [address] Syl Luu RN Appointment Related; Medication Management Social History Tobacco Use Types Packs/Day Years [...] encounter Miscellaneous Notes * Telephone Encounter - Syl Luu RN - 02/13/2023 0827 EDT Thank you! ----- Message ----- From: Dexter Marshall MD Sent: 02/13/2023 7:30 EDT To: Syl Luu RN Subject: RE: Supplement questions No guidelines regarding them. I looked into them and the best I can tell there should be no increased risk of bleeding so she can continue ----- Message ----- From: Syl Luu RN Sent: 02/12/2023 13:39 EDT To: Dexter Marshall MD Subject: Supplement questions Any concerns about Elsa not stopping her L-Methylfolate or Acetylcysteine? These don't seem like the typical supplements that we ask people to hold. I'm not sure yet why she is taking them, but when I looked them up they seem important and more of medical indications. I'm not sure where they fall on the TUNDE guidelines. Can you let me know? Thanks! Margarita documented in this encounter Plan of Treatment Upcoming Encounters Date Type Department Care Team (Late st Contact Info) Description 04/02/2024 14:[address] [facility] Pulmonology [address] [facility], [place] [address] Ray Samson MD [address] [place] [address], [address] [place] [address] documented as of this encounter Visit Diagnoses Not on filedocumented in this encounter Care Teams Silverware Etcher Relationship Specialty Start Date End Date Felicia Ivan FNP [address] [facility] [place] [address] [place] [address] PCP - General 12/27/20 documented as of this encounter
--- OUTSIDE RECORDS SUMMARY | 2024-03-12 16:21 | XMS_ITS | Encounter Summary ---
Author Organization [facility] Address [address] [place] [address] Care Team Providers Care Hospital Manager Name Role Phone Felicia Ivan ALYSSA Primary Care Provider Reason for Referral * Radiology Services (Routine/Next Available) - Authorization Not Required Specialty Diagnoses / Procedures Referred By Contac t Referred To Contact Diagnoses Lumbar disc herniation with radiculopathy Procedures FL C-ARM BLOCK/INJECTION IN CLINIC Dexter Marshall MD [address] [place] [phone] [facility] [place] [place] Referral ID Status Reason Start Date Expiration Date Visits Requested Visits Authorized [id number] Authorization Not Required 03/07/2023 1 1 Reason for Visit * Radiology Services (Routine/Next Available) - Authorization Not Required Specialty Diagnoses / Procedures Referred By Contac t Referred To Contact Diagnoses Lumbar disc herniation with radiculopathy Procedures FL C-ARM BLOCK/INJECTION IN CLINIC Dexter Marshall MD [address] [place] [address] [facility] [place] [place] Referral ID Status Reason Start Date Expiration Date Visits Requested Visits Authorized [id number] Authorization Not Required 03/07/2023 1 1 Encounter Details Date Type Department Care Team (Latest Contact Info) Description 03/08/2023 10:30 EDT - 03/08/2023 13:22 EDT Hospital Encounter [facility] [place] [place] Xray [address] [place] [address] Lumbar disc herniation with radiculopathy Discharge Disposition: Home or Self Care Social [...] Dispensed Refills Start Date End Date acetylcysteine (T-LYIWHR-W-CYSTEINE MISC) by misc (non-drug; combo route) route. budesonide/formoterol fumarate (SYMBICORT INHALATION) Inhale as directed. desvenlafaxine succinate (PRISTIQ) 50 mg SR tablet Take 1 Tablet by mouth daily. L-METHYLFOLATE 15 mg tablet 11/11/2022 lamoTRIgine (LAMICTAL) 100 mg tablet Take 100 mg by mouth daily. NORETHINDRONE, CONTRACEPTIVE, ORAL Take by mouth. norethindrone-e.estradi ol-iron (JUNEL FE 24 ORAL) Take by mouth. spironolactone (ALDACTONE) 100 mg tabletIndications:Acne vulgaris Take 1 Tablet by mouth daily. 30 Tablet 11 12/20/2021 tretinoin (RETIN-A) 0.025 % cream Apply a pea sized amount to the whole face twice weekly at night, can increase to nightly as tolerated 45 g 4 12/28/2020 VENTOLIN HFA 90 mcg/actuation inhaler 09/30/2022 gabapentin (NEURONTIN) 100 mg capsuleIndications:Lumb ar disc herniation with radiculopathy Start taking 1 cap by mouth at night x 3 days. Then, add 1 cap in the morning x 3 days. Finally, add 1 cap in the afternoon for a total of three times a day. 90 Capsule 1 11/16/2022 05/24/2023 methocarbamoL (ROBAXIN) 500 mg tabletIndications:Lumba r disc herniation with radiculopathy Take 2 Tablets by mouth 4 times daily as needed for Muscle Spasms. 90 Tablet 1 11/16/2022 08/19/2023 documented as of this encounter Discharge Disposition Disposition Code Departure Means Destination Home or Self Care documented in this encounter Plan of Treatment Upcoming Encounters Date Type Department Care Team (Late st Contact Info) Description 04/02/2024 14:30 EDT Office Visit [facility] Pulmonology [address] [facility], [place] [address] Ray Samson MD [address] [facility] [place] [address] documented as of this encounter Procedures Procedure Name Priority Date/Time Associated Diagnosis Comments FL C-ARM BLOCK/INJECTION IN CLINIC Routine 03/08/2023 14:23 EDT Lumbar disc herniation with radiculopathy documented in this encounter Results * FL C-ARM BLOCK/INJECTION IN CLINIC (03/08/2023 14:23 EDT) Narrative 03/08/2023 14:24 EDT This is a non-reportable exam. Dexter Marshall MD IMG FLUOROSCOPY YONAS GAMEZ documented in this encounter Visit Diagnoses Diagnosis Lumbar disc herniation with radiculopathy Displacement of lumbar intervertebral disc without myelopathy documented in this encounter Care Teams Hospital Manager Relationship Specialty Start Date End Date Felicia Ivan FNP [facility], [address] [place] [address] PCP - General 12/27/20 documented as of this encounter
--- OUTSIDE RECORDS SUMMARY | 2024-03-12 16:21 | XMS_ITS | Encounter Summary ---
Author Organization [facility] Address [address] [place] [address] Care Team Providers Care Lunchroom Mother Name Role Phone Felicia Ivan ALYSSA Primary Care Provider Reason for Referral * Radiology Services (Routine/Next Available) - Authorization Not Required Specialty Diagnoses / Procedures Referred By Contac t Referred To Contact Radiology Diagnoses Iliotibial band syndrome, unspecified leg Low back pain, unspecified Procedures MR LUMBAR SPINE WO CONTRAST TatelEloina, DENTAL TREATMENT COORDINATOR [address] [place] [address] [place] Referral ID Status Reason Start Date Expiration Date Visits Requested Visits Authorized [id number] Authorization Not Required 09/28/2022 1 1 Reason for Visit * Radiology Services (Routine/Next Available) - Authorization Not Required Specialty Diagnoses / Procedures Referred By Contac t Referred To Contact Radiology Diagnoses Iliotibial band syndrome, unspecified leg Low back pain, unspecified Procedures MR LUMBAR SPINE WO CONTRAST Tatel, Eloina S, DENTAL TREATMENT COORDINATOR [address] [place] [address] [place] Referral ID Status Reason Start Date Expiration Date Visits Requested Visits Authorized [id number] Authorization Not Required 09/28/2022 1 1 Encounter Details Date Type Department Care Team (Latest Contact Info) Description 11/02/2022 12:22 EDT - 11/02/2022 23:[address] [facility] MRI [address] [place] [address] Iliotibial band syndrome, unspecified leg; Low back pain, unspecified Discharge Disposition: Home or Self Care Social [...] Dispensed Refills Start Date End Date acetylcysteine (A-RWZCOO-I-CYSTEINE MISC) by misc (non-drug; combo route) route. budesonide/formoterol fumarate (SYMBICORT INHALATION) Inhale as directed. desvenlafaxine succinate (PRISTIQ) 50 mg SR tablet Take 1 Tablet by mouth daily. lamoTRIgine (LAMICTAL) 100 mg tablet Take 100 mg by mouth daily. NORETHINDRONE, CONTRACEPTIVE, ORAL Take by mouth. norethindrone-e.estradi ol-iron ( FE 24 ORAL) Take by mouth. spironolactone [...] Code Departure Means Destination Home or Self Shelter documented in this encounter Plan of Treatment Upcoming Encounters Date Type Department Care Team (Late st Contact Info) Description 04/02/2024 14:[address] [facility] Pulmonology [address] [facility], [place] [address] Ray Samson MD [address] [place] [address], [address] [place] [address] documented as of this encounter Procedures Procedure Name Priority Date/Time Associated Diagnosis Comments MR LUMBAR SPINE WO CONTRAST Routine 11/02/2022 13:10 EDT Iliotibial band syndrome, unspecified leg Low back pain, unspecified documented in this encounter Results * MR LUMBAR SPINE WO CONTRAST (11/02/2022 13:10 EDT) Anatomical Region Laterality Modality Spine Magnetic Resonan ce 11/02/2022 13:2 1 EDT Impressions 11/02/2022 13:21 EDT 1. Convex right lumbar scoliosis with multilevel lumbar spine degenerative disc and facet disease. Findings include and L5/S1 disc bulge with a superimposed left paracentral disc extrusion that appears to impinge the left S1 nerve root as it enters the left lateral recess within the mild/moderately narrowed spinal canal (series 8 image 12). 2. Additional findings include an L4/5 disc bulge with mild/moderate left neural foraminal narrowing. Additional levels as described above. Additional findings as discussed above. Narrative 11/02/2022 13:21 EDT INDICATION: Iliotobial band syndrome, low back pain TECHNIQUE: ??Multiplanar multisequence MR imaging of the lumbar spine was obtained without contrast. COMPARISON: None. FINDINGS: There is a mild convex right lumbar scoliosis centered at the L1 vertebral body level. The lumbar vertebral bodies maintain normal height. The paraspinal soft tissues are normal in appearance. The tip of the conus medullaris terminates at the L1 vertebral body level. At the L5/S1 level, there is a disc bulge with a superimposed left paracentral disc extrusion that appears to impinge the left S1 nerve root as it enters the left lateral recess within the mild/moderately narrowed spinal canal (series 8 image 12). There is early degenerative facet disease and mild/moderate left and mild right neural foraminal narrowing. At the L4/5 level, there is a small disc bulge and degenerative facet disease with mild right and mild/moderate left neural foraminal narrowing. There is mild spinal canal narrowing. At the L3/4 level, the spinal canal and neural foramen are patent. At the L2/3 level, the spinal canal and neural foramen are patent. At the L1/2 level, the spinal canal and neural foramen are patent. Procedure Note Lele Vargas MD - 11/02/2022 INDICATION: Iliotobial band syndrome, low back pain TECHNIQUE: Multiplanar multisequence MR imaging of the lumbar spine wasobtained without contrast. COMPARISON: None. FINDINGS: There is a mild convex right lumbar scoliosis centered at the G2eqedtzetj body level. The lumbar vertebral bodies maintain normal height.The paraspinal soft tissues are normal in appearance. The tip of the conusmedullaris terminates at the L1 vertebral body level. At the L5/S1 level, there is a disc bulge with a superimposed leftparacentral disc extrusion that appears to impinge the left S1 nerve rootas it enters the left lateral recess within the mild/moderately narrowedspinal canal (series 8 image 12). There is early degenerative facetdisease and mild/moderate left and mild right neural foraminalnarrowing. At the L4/5 level, there is a small disc bulge and degenerative facetdisease with mild right and mild/moderate left neural foraminal narrowing.There is mild spinal canal narrowing. At the L3/4 level, the spinal canal and neural foramen are patent. At the L2/3 level, the spinal canal and neural foramen are patent. At the L1/2 level, the spinal canal and neural foramen are patent. IMPRESSION 1. Convex right lumbar scoliosis with multilevel lumbar spine degenerativedisc and facet disease. Findings include and L5/S1 disc bulge with asuperimposed left paracentral disc extrusion that appears to impinge theleft S1 nerve root as it enters the left lateral recess within themild/moderately narrowed spinal canal (series 8 image 12). 2. Additional findings include an L4/5 disc bulge with mild/moderate leftneural foraminal narrowing. Additional levels as described above. Additional findings as discussed above. Eloina SHAH IMG MRI ORDERABLES documented in this encounter Visit Diagnoses Diagnosis Iliotibial band syndrome, unspecified leg Low back pain, unspecified documented in this encounter Care Teams Lunchroom Mother Relationship Specialty Start Date End Date Felicia Ivan FNP [facility], [address] [place] [address] PCP - General 12/27/20 documented as of this encounter
--- OUTSIDE RECORDS SUMMARY | 2024-03-12 16:21 | XMS_ITS | Encounter Summary ---
Author Organization [facility] Address [address] [place] [address] Care Team Providers Care Surgical Scheduler Name Role Phone Marzena Felicia SHAH Primary Care Provider [phone] Reason for Referral * Referral (Routine/Next Available) - Closed Specialty Diagnoses / Procedures Referred By Contac t Referred To Contact Pain Medicine Diagnoses Lumbar disc herniation with radiculopathy Procedures EPIDURAL STEROID INJECTION ON THE SPINE WITH FLUOROSCOPY Sharona Moore PA-C [address] [facility] [address] [place] [id number] [facility] [address] [place] [address] Referral ID Status Reason Start Date Expiration Date Visits Re quested Visits Authorized [id number] Closed 11/16/2022 1 1 Reason for Visit * Reason Comments Pain * Referral (Routine) - Authorization Not Required Specialty Diagnoses / Procedures Referred By Contac t Referred To Contact Diagnoses Iliotibial band syndrome, unspecified leg Low back pain, unspecified Tatel, ALYSSA Concepcion [address] [place] [address] [facility] [address] [place] [address] Referral ID Status Reason Start Date Expiration Date Visits Requested Visits Authorized [id number] Authorization Not Required 1 1 Encounter Details Date Type Department Care Team (Late st Contact Info) Description 11/16/2022 10:00 EDT Office Visit [facility] [address], [address] [place], [place] [address] Sharona Moore PA-C [address] [facility] [address] [place] [address] Lumbar disc herniation with radiculopathy (Primary Dx); Scoliosis concern Social History Tobacco Use Types Packs/Day Years [...] Sign Reading Time Taken Comments Blood Pressure 130/84 11/16/2022 0957 EDT Pulse 85 11/16/2022 0957 EDT Temperature - - Respiratory Rate - - Oxygen Saturation 98% 11/16/2022 0957 EDT Inhaled Oxygen Concentration - - Weight - - Height - - Body Mass Index - - documented in this encounter Ordered Prescriptions Prescription Sig Dispensed Refills Start Date End Da te methocarbamoL (ROBAXIN) 500 mg tabletIndications:Lumba r disc herniation with radiculopathy Take 2 Tablets by mouth 4 times daily as needed for Muscle Spasms. 90 Tablet 1 11/16/2022 08/19/2023 gabapentin (NEURONTIN) 100 mg capsuleIndications:Lumb ar disc herniation with radiculopathy Start taking 1 cap by mouth at night x 3 days. Then, add 1 cap in the morning x 3 days. Finally, add 1 cap in the afternoon for a total of three times a day. 90 Capsule 1 11/16/2022 05/24/2023 documented in this encounter Progress Notes * Sharona Moore PA-C - 11/16/2022 1000 EDT 11/16/2022 PATIENT: Elsa Amaya Primary Care Provider: Felicia Ivan [address], [address] [facility] [address] Referring Provider: ALYSSA Balderas [address] [place] [address] CHIEF COMPLAINT No chief complaint on file. HISTORY OF PRESENT ILLNESS Elsa Amaya is a very pleasant 42 y.o. female who presents with low back pain radiating into the left LE pain with associated numbness in the foot only. She developed leg symptoms in August and back pain developing later. Pain is a 2/10 but can become a 7/10. She completed PT 3 weeks ago andcontinues HEP without significant benefit. She stands throughout the appointment as she has been unable to sit. She reports her PCP did not offer her any medications but she has been taking NSAIDs with mild improvement. 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 HPI Treatments to date for this complaint have included: [x] Physical therapy [] post acute care registered nurse or massage therapy [x] Home exercise program [...] which includes the following prescription(s): acetylcysteine,budesonide/formoterol fumarate, desvenlafaxine succinate, gabapentin, l-methylfolate, lamotrigine, methocarbamol, norethindrone, norethindrone-e.estradiol-iron, spironolactone, tretinoin, and ventolin hfa. ALLERGIES Patient has No Known Allergies. FAMILY HISTORY Patient's family history is not on file. SOCIAL HISTORY Patient reports that she has never smoked. She has never used smokeless tobacco. REVIEW OF SYSTEMS Constitutional: Positive for activity change. Musculoskeletal: Positive for back pain, gait problem and myalgias. Neurological: Positive for weakness and numbness. All other systems reviewed and are negative. DIAGNOSTIC DATA VITALS blood pressure is 130/84 and her pulse is 85. Her oxygen saturation is 98%. PHYSICAL EXAM Nursing note and vitals reviewed.Vitals and nursing note reviewed. Constitutional: Appearance: Normal appearance. HENT: Head: Normocephalic and atraumatic. Nose: Nose normal. Mouth/Throat: Mouth: Mucous membranes are moist. Eyes: Pupils: Pupils are equal, round, and reactive to light. Cardiovascular: Rate and Rhythm: Normal rate and regular rhythm. Pulses: Normal pulses. Pulmonary: Effort: Pulmonary effort is normal. Skin: General: Skin is warm and dry. Capillary Refill: Capillary refill takes less than 2 seconds. Neurological: Mental Status: She is alert. Mental status is at baseline. Psychiatric: Mood and Affect: Mood normal. Behavior: Behavior normal. Judgment: Judgment normal. IMAGING I have personally reviewed and interpreted the MRI imaging directly. The findings were discussed indetail with the patient using models and images. MRI lumbar 11/02/22: There is a left disc herniation obliterating the lateral recess and causing mild central canal stenosis. There is L4-5 facet arthropathy. There is mild lumbar scoliosis. DIAGNOSIS The primary encounter diagnosis was Lumbar disc herniation with radiculopathy. A diagnosis of Scoliosis concern was also pertinent to this visit. ASSESSMENT/PLAN Diagnoses and all orders for this visit: Lumbar disc herniation with radiculopathy - gabapentin (NEURONTIN) 100 mg capsule; Start taking 1 cap by mouth at night x 3 days. Then, add 1cap in the morning x 3 days. Finally, add 1 cap in the afternoon for a total of three times a day. - methocarbamoL (ROBAXIN) 500 mg tablet; Take 2 Tablets by mouth 4 times daily as needed for MuscleSpasms. - EPIDURAL STEROID INJECTION ON THE SPINE WITH FLUOROSCOPY; Future - XR LUMBAR SPINE 4+ VIEWS Scoliosis concern - XR ENTIRE SPINE 2-3 VIEWS Other orders - L-METHYLFOLATE 15 mg tablet - VENTOLIN HFA 90 mcg/actuation inhaler Medications listed under other orders are included due to the limitations of [facility] but were not prescribed by me. The patient presents to the office secondary to low back pain with radiation into the left LE with associated numbness x 3 months which has not improved despite > 6 weeks of conservative treatment. We will start gabapentin and robaxin as well as order a L5-S1 TF TROY. She is a surgical candidate for hemilaminectomy discectomy should conservative treatment fail. The risks and benefits of these treatments were discussed today in detail. The patient expressed understanding of these risks and is agreeable with proceeding with this plan of care. Sharona Moore PA-C [facility] [address] [facility] [address] [place] [address] New patient coming for low back pain PT has been started MRI lumbar spine 11/01/22 documented in this encounter Plan of Treatment Upcoming Encounters Date Type Department Care Team (Late st Contact Info) Description 04/02/2024 14:30 EDT Office Visit [facility] [address] [facility], [place] [address] Ray Samson MD [address] [facility], [address] [place] [address] Scheduled Orders Name Type Priority Associated Diagnoses Orde r Schedule EPIDURAL STEROID INJECTION ON THE SPINE WITH FLUOROSCOPY Procedures Routine Lumbar disc herniation with radiculopathy Expected: 11/16/2022 (Approximate), Expires: 11/17/2023 documented as of this encounter Procedures Procedure Name Priority Date/Time Associated Diagnosis Comments XR ENTIRE SPINE 2-3 VIEWS Routine 11/16/2022 11:08 EDT Scoliosis concern XR LUMBAR SPINE 4+ VIEWS Routine 11/16/2022 11:08 EDT Lumbar disc herniation with radiculopathy documented in this encounter Results * XR ENTIRE SPINE 2-3 VIEWS (11/16/2022 11:08 EDT) Anatomical Region Laterality Modality Spine Computed Radiogr aphy 11/16/2022 10:5 7 EDT Impressions 11/17/2022 16:37 EDT 1. ?? S shaped scoliosis of the thoracolumbar spine as discussed above. 2. ?? Mild degenerative changes of the spine. THIS DOCUMENT HAS BEEN ELECTRONICALLY SIGNED BY ARIEL DEL REAL MD FOR ANY QUESTIONS OR CONCERNS REGARDING THIS REPORT PLEASE CALL [facility] AT [phone] Narrative 11/17/2022 16:37 EDT PROCEDURE INFORMATION: Exam: XR Entire Spine Exam date and time: 11/16/2022 10:57 AM Age: 42 years old Clinical indication: Encounter for screening for other musculoskeletal disorder; Low back pain; Additional info: Scoliosis concern TECHNIQUE: Imaging protocol: XR of the entire spine. Evaluation for scoliosis or surgical evaluation. Views: 2 or 3 views. COMPARISON: DX XR LUMBAR SPINE 4+ VIEWS 11/16/2022 10:49 AM FINDINGS: Bones/joints: There are mild degenerative changes of the sacroiliac joints. There is an S-shaped scoliosis of the spine. The levoconvex thoracic component measures approximately 8 degrees. The dextroconvex thoracolumbar component measures approximately 14 degrees. There are mild degenerative changes of the spine. Procedure Note Ariel Del Real MD - 11/17/2022 PROCEDURE INFORMATION: Exam: XR Entire Spine Exam date and time: 11/16/2022 10:57 AM Age: 42 years old Clinical indication: Encounter for screening for other musculoskeletal disorder; Low back pain; Additional info: Scoliosis concern TECHNIQUE: Imaging protocol: XR of the entire spine. Evaluation for scoliosis or surgical evaluation. Views: 2 or 3 views. COMPARISON: DX XR LUMBAR SPINE 4+ VIEWS 11/16/2022 10:49 AM FINDINGS: Bones/joints: There are mild degenerative changes of the sacroiliac joints. There is an S-shaped scoliosis of the spine. The levoconvex thoracic component measures approximately 8 degrees. The dextroconvex thoracolumbar component measures approximately 14 degrees. There are mild degenerative changes of the spine. IMPRESSION 1. S shaped scoliosis of the thoracolumbar spine as discussed above. 2. Mild degenerative changes of the spine. THIS DOCUMENT HAS BEEN ELECTRONICALLY SIGNED BY ARIEL DEL REAL MD FOR ANY QUESTIONS OR CONCERNS REGARDING THIS REPORT PLEASE CALL [facility] [phone] Sharona Moore PA-C IMG DIAGNOSTIC IMAGI NG ORDERABLES * XR LUMBAR SPINE 4+ VIEWS (11/16/2022 11:08 EDT) Anatomical Region Laterality Modality Computed Radiogr aphy 11/16/2022 10:4 9 EDT Impressions 11/17/2022 17:31 EDT Mild degenerative changes of the lumbar spine. THIS DOCUMENT HAS BEEN ELECTRONICALLY SIGNED BY ARIEL DEL REAL MD FOR ANY QUESTIONS OR CONCERNS REGARDING THIS REPORT PLEASE CALL [facility] AT [phone] Jessica 11/17/2022 17:31 EDT PROCEDURE INFORMATION: Exam: XR Lumbosacral Spine Exam date and time: 11/16/2022 10:49 AM Age: 42 years old Clinical indication: Intervertebral disc disorders with radiculopathy, lumbar region; Low back pain; Additional info: Low back pain with radiation TECHNIQUE: Imaging protocol: Radiologic exam of the lumbosacral spine. Views: 4 or 5 views. COMPARISON: MR LUMBAR SPINE WO CONTRAST 11/02/2022 12:45 PM FINDINGS: Bones/joints: No significant vertebral subluxation the. There are mild degenerative changes of the sacroiliac joints. There is mild disc space narrowing. There is mild facet arthropathy. There is a mild dextroconvex curvature of the lumbar spine. Soft tissues: Unremarkable. Diaphragm: The right hemidiaphragm is mildly elevated. Procedure Note Ariel Del Real MD - 11/17/2022 PROCEDURE INFORMATION: Exam: XR Lumbosacral Spine Exam date and time: 11/16/2022 10:49 AM Age: 42 years old Clinical indication: Intervertebral disc disorders with radiculopathy, lumbar region; Low back pain; Additional info: Low back pain with radiation TECHNIQUE: Imaging protocol: Radiologic exam of the lumbosacral spine. Views: 4 or 5 views. COMPARISON: MR LUMBAR SPINE WO CONTRAST 11/02/2022 12:45 PM FINDINGS: Bones/joints: No significant vertebral subluxation the. There are mild degenerative changes of the sacroiliac joints. There is mild disc space narrowing. There is mild facet arthropathy. There is a mild dextroconvex curvature of the lumbar spine. Soft tissues: Unremarkable. Diaphragm: The right hemidiaphragm is mildly elevated. IMPRESSION Mild degenerative changes of the lumbar spine. THIS DOCUMENT HAS BEEN ELECTRONICALLY SIGNED BY ARIEL DEL REAL MD FOR ANY QUESTIONS OR CONCERNS REGARDING THIS REPORT PLEASE CALL [facility] [phone] Sharona Moore PA-C [facility] DIAGNOSTIC IMAGI NG ORDERABLES documented in this encounter Visit Diagnoses Diagnosis Lumbar disc herniation with radiculopathy- Primary Displacement of lumbar intervertebral disc without myelopathy Scoliosis concern Special screening for other specified conditions documented in this encounter Historical Medications * This list may reflect changes made after this encounter. Medication Sig Dispensed Refills Start Date End Date VENTOLIN HFA 90 mcg/actuation inhaler L-METHYLFOLATE 15 mg tablet 11/11/2022 added in this encounter Care Teams Surgical Scheduler Relationship Specialty Start Date End Date Felicia Ivan FNP [facility], [address] [place] [address] PCP - General 12/27/20 documented as of this encounter
--- OUTSIDE RECORDS SUMMARY | 2024-03-12 16:21 | XMS_ITS | Clinical Summary ---
Author Organization [facility] Address [address] [place] [address] Care Team Providers Care Porter Baggage Name Role Phone Taniapujavarinder Felicia ALYSSA Primary Care Provider [phone] Allergies No known active allergies Medications Medication [...] ( ORAL) Take by mouth. Active acetylcysteine (V-YBWSKV-A-CYSTEINE MISC) by misc (non-drug; combo route) route. [...] Active Active Problems No known active problems Encounters Date Type Department Care Team Description 01/23/2024 13:58 EDT - 01/23/2024 23:59 EDT Hospital Encounter [facility] PFT [address] [place] [address] Room 1, [facility] Pft Moderate persistent asthma without complication Discharge Disposition: Home or Self Care from Last 3 Months Social History Tobacco Use Types Packs/Day Years [...] on file Sexual Orientation Not on file Obstetrics History Last Filed Vital Signs Vital Sign Reading [...] Info) Description 04/02/2024 14:30 EDT Office Visit [facility] Pulmon[facility] [address] [facility], [place] [address] Ray Samson MD [address] [facility], [address] [place] [address] Health Maintenance Due Date Last Done Comments Asthma Action Plan 1980 Hepatitis C Screen 1980 Hepatitis B Vaccine (1 of 3 - 19+ 3-dose series) 07/08 COVID-19 Vaccine ( season) 2024 Lung Function Test (Spirometry) 01/22/2025 4 Procedures Procedure Name Priority Date/Time Associated Diagnosis Comments PULMONARY FUNCTION TESTING Routine 01/23/2024 14:02 EDT Moderate persistent asthma without complication from Last 3 Months Results * PULMONARY FUNCTION TESTING (01/23/2024 14:02 EDT) 01/23/2024 14:0 2 EDT Madeline Hargrove PFT ORDERABLES [facility] PULMONARY FUNCTION TESTING from Last 3 Months Care Teams Porter Baggage Relationship Specialty Start Date End Date Felicia Ivan FNP [facility], [address] [place] [address] PCP - General 12/27/20
--- OUTSIDE RECORDS SUMMARY | 2024-03-12 16:21 | XMS_ITS | Encounter Summary ---
Author Organization [facility] Address [address] [place] [address] Care Team Providers Care Clothing Examiner Name Role Phone TaniapujavarinderFelicia ALYSSA Primary Care Provider [phone] Reason for Referral * PT/OT/ST (Routine/Next Available) - Closed Specialty Diagnoses / Procedures Referred By Contac t Referred To Contact Diagnoses Lumbar disc herniation with radiculopathy Chronic pain of both knees Sharona Moore PA-C [address] [place] [id number] Referral ID Status Reason Start Date Expiration Date V isits Requested Visits Authorized [id number] Closed Specialty Services Required 05/20/2023 1 1 Question Answer Reason for Request: Single visit for HEP for back and knee pain SITE [facility] in [place], [place] Reason for Visit * Reason Comments Follow-up Follow up pain clini c visit Encounter Details Date Type Department Care Team (Late st Contact Info) Description 05/20/2023 9:30 EST Office Visit [facility] [address] [place] [address] Sharona Moore PA-C [address] [facility] [address] [place] [address] Lumbar disc herniation with radiculopathy (Primary Dx); Chronic pain of both knees Social History Tobacco Use Types Packs/Day Years [...] Sign Reading Time Taken Comments Blood Pressure 122/78 05/20/2023 0945 EST Pulse 99 05/20/2023 0945 EST Temperature - - Respiratory Rate - - Oxygen Saturation - - Inhaled Oxygen Concentration - - Weight - - Height - - Body Mass Index - - documented in this encounter Progress Notes * Sharona Moore PA-C - 05/20/2023 0930 EST 05/20/2023 PATIENT: Elsa Amaya Primary Care Provider: Felicia Ivan [address] [place] [address] Referring Provider: No referring provider defined for this encounter. Phone: N/A Fax: CHIEF COMPLAINT Follow-up of the Lower Back (Follow up pain clinic visit) HISTORY OF PRESENT ILLNESS Elsa Amaya is [...] young children requiring lifting. The patient presents to the office s/p left L5-S1 TF TROY. She reports the injection worsened her pain for the first week. She feels it didn't help although reports 1/10 pain today and 3/10 at its worst. Last visit, she reported 7/10 pain. Since onset of symptoms she reports 85% improvement. She continues to have some numbness in the left lateral LE. She denies weakness. She reports she has been relying more on her back to lift due to knee pain. She reports the knee pain has been going on for years. She has not had any treatment for this. Treatments to date for this complaint have included: Injection History: 03/08/2023: L5-S1 TFESI on the left [x] Physical therapy [] direct care provider or massage therapy [x] Home exercise program [...] negative. DIAGNOSTIC DATA VITALS blood pressure is 122/78 and her pulse is 99. PHYSICAL EXAM Nursing note and vitals reviewed.Vitals [...] at baseline. Sensory: Sensation is intact. Motor: Motor function is intact. Gait: Gait is intact. Comments: Able to [...] degenerative changes and scoliosis noted. DIAGNOSIS The primary encounter diagnosis was Lumbar disc herniation with radiculopathy. A diagnosis of Chronic pain of both knees was also pertinent to this visit. ASSESSMENT/PLAN Elsa was seen today for follow-up. Diagnoses and all orders for this visit: Lumbar disc herniation with radiculopathy - AMB CONS/FOLLOW UP PHYSICAL THERAPY - [facility]; Future Chronic pain of both knees - AMB CONS/FOLLOW UP PHYSICAL THERAPY - [facility]; Future The patient presents to the office secondary to low back pain with radiation into the left LE with associated numbness x 3 months. Symptoms have improved since onset but she continues to have mild pain. We recommend continuation of gabapentin. We will refer her to PT for single visit for HEP. At the end of the visit, she requested referral for her knees as well due to chronic pain with associatedcrepitus. X-rays and ortho sports referral deferred. She will follow up in 3 months or PRN. All questions answered. Sharona Moore PA-C [facility] [address] [facility] [address] [place] [address] New patient coming for low back pain PT has been started MRI lumbar spine 11/01/22Patient presents today for follow up of her lower back. LV 11/16 with [facility] where xrays were taken of lumbar and entire spine. Rx for gabapentin and methocarbamol and TROY ordered. MRI 11/02/22 TROY 02/22; 03/08 documented in this encounter Plan of Treatment Upcoming Encounters Date Type Department Care Team (Late st Contact Info) Description 04/02/2024 14:30 EDT Office Visit [facility] [address] [facility], [place] [address] Ray Samson MD [address] [facility], [address] [place] [address] Scheduled Referrals Name Type Priority Associated Diagnoses Order Schedule AMB CONS/FOLLOW UP PHYSICAL THERAPY - [facility] Outpatient Referral Routine/Next Available Lumbar disc herniation with radiculopathy Chronic pain of both knees Expected: 05/27/2023 (Approximate), Expires: 05/20/2024 documented as of this encounter Visit Diagnoses Diagnosis Lumbar disc herniation with radiculopathy- Primary Displacement of lumbar intervertebral disc without myelopathy Chronic pain of both knees documented in this encounter Care Teams Clothing Examiner Relationship Specialty Start Date End Date Felicia Ivan FNP [address] [facility], [address] [place], [place] [address] PCP - General 12/27/20 documented as of this encounter
--- OUTSIDE RECORDS SUMMARY | 2024-03-12 16:21 | XMS_ITS | Encounter Summary ---
Author Organization [facility] Address [address] [place] [address] Care Team Providers Care Outsole Skiver Name Role Phone Felicia Ivan Primary Care Provider Reason for Referral * Referral (Routine/Next Available) - Closed Specialty Diagnoses / Procedures Referred By Contac t Referred To Contact Pain Medicine Diagnoses Lumbar disc herniation with radiculopathy Procedures EPIDURAL STEROID INJECTION ON THE SPINE WITH FLUOROSCOPY Sharona Moore PA-C [address] [address] [facility] [address] [place] [address] Referral ID Status Reason Start Date Expiration Date Visits Re quested Visits Authorized [id number] Closed 11/16/2022 1 1 Reason for Visit * Referral (Routine/Next Available) - Closed Specialty Diagnoses / Procedures Referred By Contac t Referred To Contact Pain Medicine Diagnoses Lumbar disc herniation with radiculopathy Procedures EPIDURAL STEROID INJECTION ON THE SPINE WITH FLUOROSCOPY Sharona Moore PA-C [address] [address] [facility] [address] [place] [id number] Referral ID Status Reason Start Date Expiration Date Visits Re quested Visits Authorized [id number] Closed 11/16/2022 1 1 Encounter Details Date Type Department Care Team (Latest Contact Info) Description 03/08/2023 13:23 EDT - 03/08/2023 23:59 EDT Hospital Encounter [facility] [address] [place], [place] [id number] Dexter Marshall MD [address] [place] [address] [place] [phone] Radiculopathy, lumbar region (Primary Dx); Lumbar disc herniation with radiculopathy Discharge Disposition: [...] Sign Reading Time Taken Comments Blood Pressure 132/84 03/08/2023 1426 EDT Pulse - - Temperature 36.3 ??C (97.4 ??F) 03/08/2023 1335 EDT Respiratory Rate 16 03/08/2023 1335 EDT Oxygen Saturation 100% 03/08/2023 1426 EDT Inhaled Oxygen Concentration - - Weight 82.6 kg (182 lb) 03/08/2023 1335 EDT Height 175.3 cm (5' 9) 03/08/2023 1335 EDT Body Mass Index 26.88 03/08/2023 1335 EDT documented in this encounter Discharge Instructions * Discharge Instructions* Chiquis Sky RN - 03/08/2023 14:23 EDT [facility] Your procedure today was a ____Left L5-S1 transforaminal epidural steroid injection The following information should help you over the next few days: For your safety, you need to have someone drive you home today. Please do not drive a car or any motorized equipment for the rest of today. Activities are as tolerated. Plan light activities, nothing to stress or strain the area where you received your injection(s). Remove bandage(s) later today. Watch for signs of infection over the injection sites such as redness, warmth, bleeding, swelling, or drainage. Call if you have a fever greater than 101 degrees, not relieved by Tylenol, or any signs or symptoms of infection. Please ask your doctor when you can restart your blood thinners , otherwise you may resume any medications that we asked you to hold for your procedure. You may take mild pain medications, you can take acetaminophen (Tylenol), ibuprofen (Motrin, Advil,Nuprin, IB, etc) or aspirin as needed for pain, as long as your primary care doctor has indicated no restrictions. Diabetics be aware your blood sugar levels may increase due to the steroid used. Please call your PCP if you are concerned. Your procedure site may feel sore from the needles placed today. You can use ice to help relieve your symptoms, and it may be left on for 20 minutes at a time. Heat is not recommended as it may causemore swelling and pain. You may also have a flare of your symptoms after your injection. Please call back immediately should you develop: -signs of infection as listed above -increasingly severe neck or back pain -continued numbness or weakness in your arms if you had a neck injection, or in your legs if you had a back injection -loss of bladder/bowel control that is new or unusual *For symptoms listed above call immediately. Our phone number is , or after hours/weekends call [phone], ask them to page internal communications specialist anesthesiologist. You will need to provide your return contact number and a doctor will call you back. If your doctor was Dr. Mccracken or Dr. Marshall, and you have any of the above complaints and If afterhours or on the weekend, please call [facility] Provider Access line at , ask them to page the on-call Chronic Pain service, you will need to provide your return contact number and a doctor will call you back. 8. If you develop a Headache that is better when you lay down, please call to talk to an anesthesiologist. (After [phone]) 9. A nurse will call you tomorrow if you had one of the procedures listed: Facet Injection, Transforaminal Epidural Steroid Injection, SI Joint, Occipital Nerve Block, or a Peripheral Nerve Block: Please keep track of how you feel over the next 24 hours. We want to know if your regular pain has changed, and how long the pain relief lasts. Try to separate the injection site pain, from your normal pain. Having this information is an important part of your care, keep track of your results with the information below. Significant functional relief = functional improvement: Y__ N__ (Can you do your daily activities any easier? What activities can you do with less pain?) Current Pain: Scale: (1-10) Number of hours of pain relief in first 24 hours 10. A nurse will call you in 3 weeks as part of your follow-up care, it is important that we speak with you. We will want to hear how you are doing. Please keep track of your pain and you daily activities over the next few weeks and note any improvements or changes. Having this information is an important part of your care. If you were sedated for the procedure: Do not drive any vehicle or operate any power equipment until tomorrow. Do not drink any alcohol or take narcotics unless prescribed. Do not make any important decisions today. Please have someone with you today. If you are unable to have someone with you, please have someonecall you 3-4 times today. documented in this encounter Medications at Time of Discharge Medication Sig Dispensed Refills Start Date End Date acetylcysteine (D-BPMYTW-J-CYSTEINE MISC) by misc (non-drug; combo route) route. budesonide/formoterol fumarate (SYMBICORT INHALATION) Inhale as directed. desvenlafaxine succinate (PRISTIQ) 50 mg SR tablet Take 1 Tablet by mouth daily. L-METHYLFOLATE 15 mg tablet 11/11/2022 lamoTRIgine (LAMICTAL) 100 mg tablet Take 100 mg by mouth daily. NORETHINDRONE, CONTRACEPTIVE, ORAL Take by mouth. norethindrone-e.estradi ol-iron (JUNE FE 24 ORAL) Take by mouth. spironolactone [...] documented in this encounter Progress Notes * Dexter Marshall MD - 03/08/2023 1500 EDT Patient Name: Elsa Amaya : 1980 Date of Service: 03/08/2023 Mainframe Systems Programmer: Dexter Marshall MD Drama Critic: None Procedure: Diagnostic and potentially therapeutic lumbar transforaminal epidural steroid injection at L5-S1 onthe left Interval History: Patient presents today for continued evaluation and treatment of their chronic lower back and left lower extremity pain. Please refer to Sharona Moore's previous note for full details regarding the patient's pain complaint. Patient currently denies any progressive weakness, unexplained fever, trauma or unexplained weight loss. The patient reports no recent changes in the character, quality, or distribution of the pain. There are no recent onset of new associated symptoms such as changes in strength, sensation, or bladder control. All previous medical records including current medications, anticoagulation status, any signs of current infection, and new imaging were reviewed. Injection History: 03/08/2023: L5-S1 TFESI on the left Allergies: No Known Allergies Physical Exam: Vitals: BP 128/83 (BP Cuff Location: Right arm) Temp 36.3 ??C (97.4 ??F) (Oral) Resp 16 Ht 175.3 cm (69) Wt 82.6 kg (182 lb) LMP (LMP Unknown) Comment: Pt is on BCP SpO2 98% BMI 26.88 kg/m?? General: Patient is alert and oriented, no acute distress Lungs: symmetric chest rise, no evidence of labored breathing Skin: clear, warm, dry and intact and no rashes, bruises or petechiae noted Assessment: 1. Radiculopathy, lumbar region 2. Lumbar disc herniation with radiculopathy Plan: Ms. Elsa Amaya is a 42 y.o. female that presents to the pain clinic to undergo lumbar transforaminal epidural steroid injections in regards to her chronic back pain. All risks, benefits, andalternatives were thoroughly explained to Ms. Elsa Amaya who verbally communicated understanding of the management plan. Proceed with a diagnostic and potentially therapeutic transforaminal epidural steroid injection at left L5-S1. Follow up: With orthopedic spine. We are available for additional injections as needed. PROCEDURE: The patient gave informed written consent to proceed with this procedure following a detailed discussion of the risks and benefits associated with transforaminal epidural steroid injection in the lumbar spine including but not limited to infection, bleeding, headache, intrathecal injection, allergic reaction, further exacerbation of current symptoms, neurological injury, and lack of efficacy. Thepatient was then placed in the prone position, the skin over the lumbosacral area was marked and prepped with chlorhexadine, and the site was draped in sterile fashion. A timeout was performed with full staff present to identify the patient, verify the procedure being performed, and review allergies. Flouoroscopy was used to visualize the aforementioned neuroforamen. The skin and subcutaneous tissue over this level was anesthetized by infiltration of 1% lidocaine. A 22 guage 5.0 inch spinal needle was inserted under fluoroscopic guidance using coaxial technique. The needle was slowly advanced by posterolateral approach to the superior aspect of the foramen. Fluoroscopic images in the AP and lateral views were taken to confirm final needle tip position in the distal foramen. No parasthesias occurred during needle insertion and aspiration was negative. Contrast dye was injected under live fluoroscopy and revealed good spread along the nerve root with no evidence of intravascular or intrathecal uptake. After negative aspiration, 80 mg Depo-Medrol and 0.5ml 0.25% Bupivacaine was injected.The needle was then flushed and withdrawn. Fluoroscopic spot images were saved during the procedure. The patient tolerated the procedure well, there were no apparent complications, and she was discharged in stable condition. Written and verbal discharge instructions were reviewed with the patient prior to discharge. Dexter Marshall MD * Chiquis Sky RN - 03/08/2023 1500 EDT Received pt from procedure area. Re procedure well, dsg cdi. Reviewed DC instructions, answered questions. Awaiting ride * Syl Luu RN - 03/08/2023 1500 EDT Patient's ride arrived, she ambulated to car with RN to meet ride. Ambulates with steady gait. documented in this encounter OR Notes * Preprocedure Instructions - Ko Meier RN - 03/08/2023 1500 EDT Phone call related to scheduling appointment. Appointment scheduled with Dr. Marshall on 03/08/2023, please arrive at 14:00, located at [facility] . Reminded patient of the following items: -Patient must have a driver manager to be present at drop off and lemon picker for their appointment. They may not take a bus or taxi. -Patient needs to arrive 60 minutes ahead of procedural start time. Please check in at patient registration, before coming to the same day surgery waiting room. (Nurse will provide time of arrival.) -Please arrive with clean skin, do not apply any lotions, perfumes, creams or lidocaine patches. Please wear loose fitting, comfortable clothing, with elastic waistband if possible. -Patient must be infection free and off antibiotics for 14 days prior to appointment with written clearance from MD, also no active or open wounds. -Patient must contact clinic if any recent exposure to known positive Covid-19 with or without symptoms. -All vaccines should be 2 weeks before or after appointment for procedures that involve steroids. -Patient should not have had any oral steroids, or other steroid injections anywhere else in their body within the past 4-6 weeks. -Patient should notify our clinic if they have a scheduled appointment, or have recently been seen at any other pain clinic. . Procedures may require an adjustment to current medications, which include vitamins or supplements. -We require written approval from your prescribing provider (primary care doctor, neurologist or beekeeper farmer) before stopping anticoagulation medication (this includes ASPIRIN). Procedural Safety Medications and Fasting Instructions as applicable, lists exceptions below: Hold Ibuprofen x 24 hours prior to procedure Hold vitamins and supplements x 7 days, last dose 02/28/2023 May take Actylcysteine and L-Methylfolate Continue all other medications as prescribed. Patient advised to call our clinic: -If they develop any new symptoms, or exposure to someone who is sick with covid-19, flu, or cold symptoms. -Concerns for infection or are prescribed antibiotics. -Skin issues such as new or non-healing wounds, open areas or rashes. -Prescribed new medications. -If they need to reschedule appointment. If they have any questions regarding medication holds, they should contact the clinic to speak witha nurse. Directions and clinic phone number [phone] were provided to patient as needed. documented in this encounter Miscellaneous Notes * Addendum Note - Adia Prado RN - 03/08/2023 1500 EDTEncounter addended by: Adia Prado RN on: 03/11/2023 11:52 Actions taken: Contacts section saved, Flowsheet accepted * Addendum Note - Adia Prado RN - 03/08/2023 1500 EDTEncounter addended by: Adia Prado RN on: 03/29/2023 14:39 Actions taken: Contacts section saved, Flowsheet accepted * Addendum Note - Adia Prado RN - 03/08/2023 1500 EDTEncounter addended by: Adia Prado RN on: 03/29/2023 16:06 Actions taken: Contacts section saved, Flowsheet accepted documented in this encounter Plan of Treatment Upcoming Encounters Date Type Department Care Team (Late st Contact Info) Description 04/02/2024 14:30 EDT Office Visit [facility] Pulmonology [address] [place] [id number] Ray Samson MD [address] [place] [address], [facility] [address] [place] [address] Scheduled Orders Name Type Priority Associated Diagnoses Orde r Schedule EPIDURAL STEROID INJECTION ON THE SPINE WITH FLUOROSCOPY Procedures Routine Lumbar disc herniation with radiculopathy 1 Occurrences starting 03/08/2023 until 03/08/2023 documented as of this encounter Visit Diagnoses Diagnosis Radiculopathy, lumbar region- Primary Thoracic or lumbosacral neuritis or radiculitis, unspecified Lumbar disc herniation with radiculopathy Displacement of lumbar intervertebral disc without myelopathy documented in this encounter Administered Medications Inactive Administered Medications - up to 3 most recent administrations Medication Order MAR Action Action Date Dose Rate Site BUPivacaine (PF) (MARCAINE) 0.25 % (2.5 mg/mL) injection 1 mL 1 mL, epidural, NOW X1, 1 dose, On Sat03/08/23 at 1445, Routine, Intraprocedure Given by Other 03/08/2023 14:20 EDT 0.5 mL iohexoL (OMNIPAQUE 300) injection 1 mL 1 mL, epidural, NOW X1, 1 dose, On Sat03/08/23 at 1445, Routine, Intraprocedure Given by Other 03/08/2023 14:19 EDT 1 mL methylPREDNISolone ACETATE (DEPO-MEDROL) injection 80 mg 80 mg, epidural, NOW X1, 1 dose, On Sat03/08/23 at 1445, Routine, Intraprocedure Given by Other 03/08/2023 14:20 EDT 80 mg documented in this encounter Care Teams Outsole Skiver Relationship Specialty Start Date End Date Felicia Ivan FNP [facility] [address] [employer] [facility], [address] [place] [address] PCP - General 12/27/20 documented as of this encounter
--- OUTSIDE RECORDS SUMMARY | 2024-03-12 16:21 | XMS_ITS | Encounter Summary ---
Author Organization [facility] Address [address] [place] [address] Care Team Providers Care Grid Inspector Name Role Phone Hernando Kumari MD Primary Care Provider Felicia Ivan Primary Care Provider Encounter Details Date Type Department Care Team (Late st Contact Info) Description 11/30/2020 Lab Requisition [facility] Pathology & Laboratory Medicine - [address] [id number] Felicia Ivan FNP [address] [facility], [address] [place] [address] Encounter for general adult medical examination without abnormal findings; Encounter for screening for malignant neoplasm of cervix Social History Tobacco Use Types Packs/Day Years [...] Info) Description 04/02/2024 14:30 EDT Office Visit [facility] Pulmonology [address] [place], [place] [address] Ray Samson MD [address] [facility], [address] [place] [address] documented as of this encounter Procedures Procedure Name Priority Date/Time Associated Diagnosis Comments PAP TEST Today 11/28/2020 15:30 EDT Encounter for general adult medical examination without abnormal findings Encounter for screening for malignant neoplasm of cervix HPV DNA DETECTION WITH GENOTYPING, PCR Today 11/28/2020 15:30 EDT Encounter for general adult medical examination without abnormal findings Encounter for screening for malignant neoplasm of cervix documented in this encounter Results * HUMAN PAPILLOMAVIRUS (HPV) DETECTION-HIGH RISK TYPES (11/28/2020 15:30 EDT) HPV other High Risk types, PCR Negative Negative 12/08/2020 17:[address] [facility] Comment:No E6 or E7 mRNA is detected from HPV types 16,18,31,33,35,39,45,51,52,56,58,59,66, and 68 by molding cutter mediated amplification. Papanicolaou smear specimen (specimen) CERVIX UTERI STRUCTURE / Unknown 11/28/2020 15:30 EDT 12/07/2020 15:50 EDT Felicia Ivan CERTIFIED BREASTFEEDING EDUCATOR MICROBIOLOGY - GENER AL ORDERABLES [facility] [address] [place] [address] * PAP TEST (11/28/2020 15:30 EDT) Specimens A. Cervix and/or Endocervix , ThinPrep Imaging System with Manual Evaluation 12/08/2020 17:[address] [facility] Specimen Adequacy Satisfactory for Evaluation - transformation zone component absent 12/08/2020 17:[address] [facility] General Categorization Negative for intraepithelial lesion or malignancy 12/08/2020 17:[address] [facility] Attestation . 12/08/2020 17:[address] [facility] at 1715 Clinical History See below 12/09/19 17:[address] [facility] HPV The result for the Human Papillomavirus (HPV) Detection-High Risk Types is Negative. No E6 or E7 mRNA is detected from HPV types 16,18,31,33,35,39 ,45,51,52,56,58,5 9,66, and 68 by molding cutter mediated amplification.Christina ting was performed on specimen [id number] and was resulted on 12/08/2020 1714 EDT by BRANDAN, LAB INSTRUMENT RESULTS IN 12/08/2020 17:[address] [facility] Performing Lab [facility] 12/08/2020 17:[address] [facility] Scanned Images 12/08/2020 17:[address] [facility] Papanicolaou smear specimen (specimen) CERVIX UTERI STRUCTURE / Unknown 11/28/2020 15:30 EDT 11/30/2020 11:46 EDT Felicia SHAH PATHOLOGY ORDERABLES [facility] [address] [place] [address] documented in this encounter Visit Diagnoses Diagnosis Encounter for general adult medical examination without abnormal findings Unspecified general medical examination Encounter for screening for malignant neoplasm of cervix Screening for malignant neoplasm of the cervix documented in this encounter Care Teams Grid Inspector Relationship Specialty Start Date End Date Hernando Kumari MD [address] [place] [phone] PCP - General 08/09/19 12/26/20 Felicia Ivan FNP [address] [employer], [address] [place], [place] [id number] PCP - General 12/27/20 documented as of this encounter
--- OUTSIDE RECORDS SUMMARY | 2024-03-12 16:21 | XMS_ITS | Encounter Summary ---
Author Organization [facility] Address [address] [place] [address] Care Team Providers Care Store Operations Manager Name Role Phone Felicia Ivan ALYSSA Primary Care Provider Reason for Visit * Reason Onset Date Comments Medications Refill 05/24/2023 Encounter Details Date Type Department Care Team (Late st Contact Info) Description 05/24/2023 Telephone [facility] Orthopedics & Sport Medicine [address] [place], [place] [id number] Sharona Moore PA-C [address] [facility] [address] [place] [address] Medications Refill Social History Tobacco Use Types Packs/Day Years [...] Dispensed Refills Start Date End Da te gabapentin (NEURONTIN) 100 mg capsuleIndications:Lumbar disc herniation with radiculopathy Take 1 Capsule by mouth 3 times daily. 90 Capsule 2 05/24/2023 documented in this encounter Miscellaneous Notes * Telephone Encounter - Angelique Gamez RN - 05/24/2023 1347 EST Called patient to inform her the gabapentin prescription was sent to [facility] in [place]. Recommended to the patient that in the future she should call our office directly for prescription refill requests as things can be delayed when the requests are faxed over by the pharmacy. Patient has no other questions or needs at this time. * Telephone Encounter - Angelique Gamez RN - 05/24/2023 1310 EST Patient is out of her gabapentin as of today, please send prescription to [facility] in [place]. Thank you! * Telephone Encounter - Leah Forman - 05/24/2023 1306 EST Patient is calling and stating that the medication that she was taking is now gone and she needs a refill as soon as possible sent to [facility] in [place] please. documented in this encounter Plan of Treatment Upcoming Encounters Date Type Department Care Team (Late st Contact Info) Description 04/02/2024 14:[address] 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 Then, add 1 cap in the morning x 3 days. Finally, add 1 cap in the afternoon for a total of three times a day. Reorder 11/16/2022 05/24/2023 documented as of this encounter Care Teams Store Operations Manager Relationship Specialty Start Date End Date Felicia Ivan FNP [address] [facility], [address] [place] [address] PCP - General 12/27/20 documented as of this encounter
--- OUTSIDE RECORDS SUMMARY | 2024-03-12 16:22 | XMS_ITS | Encounter Summary ---
Author Organization [facility] Address [address] [place] [address] Care Team Providers Care Control Cabinet Assembler Name Role Phone Hernando Kumari MD Primary Care Provider [phone] Reason for Visit * Reason Comments New Patient Visit lesion on chin, hx B CC * Consult (3 - 10 Business Days) - Closed Specialty Diagnoses / Procedures Referred By Tari edwards Referred To Contact Dermatology Diagnoses Disorder of the skin and subcutaneous tissue, unspecified Personal history of other malignant neoplasm of skin Felicia Ivan FNP [address], [address] [place] [address] [facility] Dermatology [address] [place] [id number] Referral ID Status Reason Start Date Expiration Date Visits Re quested Visits Authorized [id number] Closed 1 1 Encounter Details Date Type Department Care Team (Late st Contact Info) Description 03/09/2020 12:40 EDT Office Visit [facility] Dermatology 5th [address] [address] Sharri Mistry MD [address] [place] [address], [address] [place] [address] Neoplasm of uncertain behavior of skin (Primary Dx); Sebaceous hyperplasia; Acne vulgaris; History of basal cell carcinoma (BCC) Social History Tobacco Use Types Packs/Day Years Used Date Smoking Tobacco: Never Smokeless Tobacco: Never Interpersonal Safety Answer Date Record ed Physically Hurt Never 02/14/2020 Verbally Threaten Not on file 02/14/2020 Sex and Gender Information Value Date Recorded Sex Assigned at Not on file Gender Identity Not on file Sexual Orientation Not on file documented as of this encounter Patient Instructions * Patient Instructions* AlmarosaRonny MA - 03/09/2020 12:40 EDT WOUND CARE INSTRUCTIONS FOR SKIN BIOPSIES DRESSING/BANDAID: This should remain in place for 24 hours. You may shower or bathe after 24 hours.After the shower, remove the bandage, pat dry, and replace it with Vaseline/petroleum jelly and non-stick bandaging. DISCOMFORT: Tylenol (acetaminophen) or ibuprofen may be used for discomfort. Generally the pain should be mild. Take according to treasury accountant directions. BLEEDING: You may notice some blood on the edges of the dressing the first day and this is NORMAL. If the bleeding soaks through the dressing, hold solid pressure on the area with a wet wash cloth for 15 minutes. If the bleeding stops, put a new dressing on the site. If not, call our office at . ACTIVITY: You may resume normal activity in 1 day unless instructed otherwise. WOUND CARE: ?? Wash hands with soap and water before changing the dressing. ?? Change the dressing daily and when it becomes wet/dirty. Clean the wound daily with mild soap and water. You may gently loosen any crusts with a cotton swab. The wound may be slightly tender and may bleed a small amount. A small amount of discharge is normal. Apply a thin layer of sterile petroleum jelly/vaseline over the wound. Cover the wound with a non-stick dressing or bandage. It is important to keep the wound covered for 1 week. We do not recommend antibiotic ointment as many people will develop an allergic reaction. SUTURE REMOVAL: Please return to our clinic at your scheduled appointment for suture removal. You may also have your local doctors remove them at the scheduled time. CONTACT THE OFFICE IF YOU EXPERIENCE: ?? increased redness ?? warmth to touch ?? increased pain ?? drainage with a foul odor ?? rapid swelling of the wound ?? fever or chills It was a pleasure taking care of you today. Please call our office or if you have any concerns or questions. Take 1/2 of the spironolactone pills in the evening for the first week as it can cause lightheadedness. documented in this encounter Ordered Prescriptions Prescription Sig Dispensed Refills Start Date End Da te spironolactone (ALDACTONE) 100 mg tabletIndications:Acne vulgaris Take 1 Tab by mouth daily for 90 days. 30 Tab 2 03/09/2020 06/07/2020 tretinoin (RETIN-A) 0.05 % creamIndications:Sebace ous hyperplasia,Acne vulgaris Apply topically to affected area at bedtime. Sparing folds of the nose and eyelids. Do not apply immediately after washing, may sting. 45 g 6 03/09/2020 12/28/2020 documented in this encounter Progress Notes * Uvaldo Howe MD - 03/09/2020 1240 EDT Images from the original note were not included. Dermatology Outpatient Visit Note Chief Complaint Patient presents with ??? New Patient Visit lesion on chin, hx BCC Dermatologic History: History of BCC Last Dermatology office visit: NPV SUBJECTIVE: Ms. Amaya is a 39 y.o. female who presents for new evaluation and treatment for a changing spot on her chin. She states that she thinks that it is similar to her prior basal cell carcinoma that shehad. She initially thought it was a pimple, but it increased. It has not bled on its own at all. Itwill occasionally bleed when she picks at it. For full Medical, Surgical, Family, and Social histories, please see the History section of this encounter in the electronic chart which I have personally reviewed. For Review of Systems, Medications and Allergies, please see those sections of this encounter in the electronic chart which I have also reviewed. She has a current medication list which includes the following prescription(s): budesonide/formoterol fumarate, desvenlafaxine succinate, lamotrigine, norethindrone, spironolactone, and tretinoin. She has No Known Allergies. OBJECTIVE: VS: There were no vitals taken for this visit. Ms. Amaya is healthy female sitting on the examination table with a normal affect. She has Malone type II skin. Cutaneous focused exam of the face was performed.The examination was normal withthe addition of comments in next section: R chin: 2mm pink pearly papule with an arborizing telangiectatic vessel and a small central dell. Forehead: Multiple yellowish papules with central dell Left medial cheek: well healed surgical scar without evidence of nodularity or ulceration ASSESSMENT & PLAN: Neoplasm of uncertain behavior of skin Favor BCC versus sebaceous hyperplasia versus molluscum. Will biopsy today given her history. - SURGICAL PATHOLOGY History of basal cell carcinoma (BCC) - No visible or palpable evidence of recurrence on today's exam Sebaceous hyperplasia Acne - Patient was reassured of the benign appearing nature of these lesions. Recommended treatment withtretinoin. She states that her acne is worse around her periods, so we will start spironolactone aswell as tretinoin. - Start tretinoin (RETIN-A) 0.05 % cream; Apply topically to affected area at bedtime. Sparing folds of the nose and eyelids. Do not apply immediately after washing, may sting. - Start spironolactone 100 mg daily. She will start at 50 mg for the first week. PROCEDURE NOTE SHAVE BIOPSY PATIENT INFORMATION: Elsa Amaya : MRN: [id number] SURGEON: MD Sharri Shaw MD The indication, risks, benefits and alternatives to this procedure were discussed in detail with the patient and all questions were answered. Informed consent was obtained in writing. PROCEDURE NOTE Specimen A Procedure: Tangential Shave Indication: Diagnostic Biopsy Site: right chin Anesthesia: 1% lidocaine with epinephrine 1:100,000 local infiltration Prep: Alcohol The lesion was prepped as above and locally anesthetized. The specimen was removed by tangential shave using a Dermablade??. Hemostasis was achieved with pressure and/or aluminum chloride. The wound was cleansed with alcohol and a sterile dressing was applied over Petrolatum ointment. Verbal and written wound care instructions were given.The specimen was submitted to pathology for histological evaluation. Return in about 3 months (around 06/08/2020) for FBSE h/o BCC and acne follow up. . She will f/u as planned or in the interim should problems arise. Uvaldo Howe MD 03/09/2020 13:24 Attestation Statement: I saw and examined the patient with the resident/fellow. I agree with the findings and plan of care documented in the resident's/fellow's note. I was present for the entire procedure. Pearly small papule ddx includes molluscum vs basal cell carcinoma vs sebaceous hyperplasia, she has already monitored for 3 months and has hx of basal cell carcinoma. Acne, flares with her period, is on OCP, hormonal. Tx with spironolactone and tretinoin, f/u in 3 months to reassess and do FBSE. Sharri Mistry MD 13:28 03/09/2020 * Ronny Jacob MA - 03/09/2020 1240 EDT Patient Education Topic: Wound Care Method: Handout and Verbal Taught to: Patient Barriers: None Outcomes: independent and verbalized understanding Signature:RONNY JACOB MA 03/09/2020 13:10 documented in this encounter Miscellaneous Notes * Result Encounter Note - Sharri Mistry MD - 03/09/2020 1240 EDT Please notify the patient of the results, that area was a small molluscum which is from a virus. Benign, no further treatment needed. Sharri Mistry MD * Result Encounter Note - Ronny Jacob MA - 03/09/2020 1240 EDT Left message for patient to call back regarding biopsy results. RONNY JACOB MA 03/10/2020 12:53 * Result Encounter Note - Ronny Jacob MA - 03/09/2020 1240 EDT Spoke with patient regarding biopsy results. She verbalized understanding and had no further questions at this time. RONNY JACOB MA 03/15/2020 11:27 documented in this encounter Plan of Treatment Upcoming Encounters Date Type Department Care Team (Late st Contact Info) Description 04/02/2024 14:30 EDT Office Visit [facility] Pulmonology [address] [facility], [facility] [place] [address] Ray Samson MD [address] [place] [address] [address] [place] [address] documented as of this encounter Procedures Procedure Name Priority Date/Time Associated Diagnosis Comments SURGICAL PATHOLOGY Routine 03/09/2020 13 :10 EDT Neoplasm of uncertain behavior of skin documented in this encounter Results * SURGICAL PATHOLOGY (03/09/2020 13:10 EDT) Final Diagnosis A. SKIN OF CHIN, RIGHT, SHAVE BIOPSY: - Molluscum contagiosum. 03/10/2020 9:48 EDT [facility] Attestation By the signature below, the attending physician certifies that they have 1) personally conducted a gross and/or microscopic examination of the described specimen(s), and/or personally interpreted the results of laboratory testing of the described specimen(s), and 2) personally rendered or confirmed the above diagnosis. 03/10/2020 9:48 EDT [facility] at 0948 Microscopic Description There is a papule formed by a hyperplastic epidermis that has a bulbous endophytic growth pattern with a central keratotic crater. The hyperplastic epidermis consists of keratinocytes whose nuclei are displaced by large eosinophilic inclusions. The inclusions are also present within the overlying horn. 03/10/2020 9:48 EDT [facility] Clinical History R chin: 2mm pink pearly papule with cental core with telangiectasia; R/O BCC vs saeid hyperplasia vs molluscum 03/10/2020 9:48 EDT [facility] Gross Description A. Received in formalin labelled with proper patient identification (initials N, C) and R chin is a shave biopsy of higgins skin (0.5 x 0.3 x 0.1 cm). There is a central higgins pearly papule (0.2 x 0.2 x 0.1 cm) located on the skin surface. The margin is inked blue. The tissue is bisected and entirely submitted in A1. MELISSA KNIGHT 03/09/2020 16:07 03/10/2020 9:48 EDT [facility] Performing Lab [facility] 03/10/2020 9:48 EDT [facility] Scanned Images 03/10/2020 9:48 EDT [facility] Tissue TISSUE SPECIMEN FROM SKIN / Unknown Collection, Other / Unknown 03/09/2020 13:10 EDT 03/09/2020 15:49 EDT Sharri Mistry MD PATHOLOGY ORDERAB LES [facility] [address] [place] [address] documented in this encounter Visit Diagnoses Diagnosis Neoplasm of uncertain behavior of skin- Primary Sebaceous hyperplasia Other specified disease of sebaceous glands Acne vulgaris Other acne History of basal cell carcinoma (BCC) documented in this encounter Historical Medications * This list may reflect changes made after this encounter. Medication Sig Dispensed Refills Start Date End Date budesonide/formoterol fumarate (SYMBICORT INHALATION) Inhale as directed. NORETHINDRONE, CONTRACEPTIVE, ORAL Take by mouth. lamoTRIgine (LAMICTAL) 100 mg tablet Take 100 mg by mouth daily. desvenlafaxine succinate (PRISTIQ) 50 mg SR tablet Take 1 Tablet by mouth daily. added in this encounter Care Teams Control Cabinet Assembler Relationship Specialty Start Date End Date Hernando Kumari MD [facility] [address] [place] [address] PCP - General 08/09/19 12/26/20 documented as of this encounter
--- OUTSIDE RECORDS SUMMARY | 2024-03-12 16:22 | XMS_ITS | Encounter Summary ---
Author Organization [facility] Address [address] [place] [address] Care Team Providers Care Trim Operator Name Role Phone Hernando Kumari MD Primary Care Provider [phone] Felicia Ivan Primary Care Provider [phone] Reason for Visit * Reason Onset Date Comments Medications Refill 09/14/2020 Encounter Details Date Type Department Care Team (Late st Contact Info) Description 09/14/2020 Refill [facility] Dermatology 5th [address] [address] Sharri Mistry MD [address] [facility], [address] [place] [address] Medications Refill Social History Tobacco Use Types [...] Telephone Encounter - Jorge Gardiner MA - 09/14/2020 1042 EDT Called patient and left message letting the patient know that their prescription had been sent to their pharmacy yesterday. JORGE GARDINER MA 09/14/2020 10:43 documented in this encounter Plan of Treatment Upcoming Encounters Date Type Department Care Team (Late st Contact Info) Description 04/02/2024 14:30 EDT Office Visit [facility] Pulmonology [address] [facility], [place] [address] Ray Samson MD [address] [facility] 5 [place] [address] documented as of this encounter Visit Diagnoses Diagnosis Acne vulgaris Other acne documented in this encounter Care Teams Trim Operator Relationship Specialty Start Date End Date Hernando Kumari MD [address] [place] [address] PCP - General 08/09/19 12/26/20 Felicia Ivan FNP [address], [address] [place], [place] [address] PCP - General 12/27/20 documented as of this encounter
--- OUTSIDE RECORDS SUMMARY | 2024-03-12 16:22 | XMS_ITS | Encounter Summary ---
Author Organization [facility] Address [address] [place] [address] Care Team Providers Care Tram Inspector Name Role Phone Hernando Kumari MD Primary Care Provider [phone] Reason for Visit * Reason Comments Other Encounter Details Date Type Department Care Team (Late st Contact Info) Description 06/04/2020 Refill [facility] Dermatology [address] [address] Uvaldo Howe MD [address] [place] [address], [address] [place] [address] Other Social History Tobacco Use [...] 1 TABLET BY MOUTH DAILY 30 Tab 2 06/07/2020 09/13/2020 documented in this encounter Miscellaneous Notes * Telephone Encounter - Adrianna Carrillo MA - 06/07/2020 1201 EST Medication: spironolactone Diagnosis: acne Last Office Visit: 03/09/2020 Next Office Visit: 09/06/2020 Last Refill: 03/09/2020 documented in this encounter Plan of Treatment Upcoming Encounters Date Type Department Care Team (Late st Contact Info) Description 04/02/2024 14:30 EDT Office Visit [facility] Pulmonology [address] [facility], [place] [address] Ray Samson MD [address] [facility], [facility] [address] [place] [address] documented as of this encounter Visit Diagnoses Diagnosis Acne vulgaris- Primary Other acne documented in this encounter Discontinued Medications Medication Sig Discontinue Reason Start Date End Da te spironolactone (ALDACTONE) 100 mg tabletIndications:Acne vulgaris Take 1 Tab by mouth daily for 90 days. Reorder 03/09/2020 06/07/2020 documented as of this encounter Care Teams Tram Inspector Relationship Specialty Start Date End Date Hernando Kumari MD [address] [employer] [address] [place] [phone] PCP - General 08/09/19 12/26/20 documented as of this encounter
--- OUTSIDE RECORDS SUMMARY | 2024-03-12 16:22 | XMS_ITS | Encounter Summary ---
Author Organization [facility] Address [address] [place] [address] Care Team Providers Care Tennis Centre Manager Name Role Phone Hernando Kumari MD Primary Care Provider [phone] Reason for Visit * Reason Onset Date Comments Biopsy Results 03/10/2020 Encounter Details Date Type Department Care Team (Late st Contact Info) Description 03/10/2020 Telephone [facility] Dermatology [address] [id number] Sharri Mistry MD [address] [place] [address], [address] [place] [address] Biopsy Results Social History Tobacco Use Types Packs/Day Years [...] Miscellaneous Notes * Telephone Encounter - Adrianna Jacob MA - 03/15/2020 1128 EDT Spoke with patient regarding biopsy results. She verbalized understanding and had no further questions at this time. ADRIANNA JACOB MA 03/15/2020 11:28 * Telephone Encounter - Adrianna Jaocb MA - 03/10/2020 1253 EDT Left message for patient to call back regarding biopsy results. ADRIANNA JACOB MA 03/10/2020 12:53 documented in this encounter Plan of Treatment Upcoming Encounters Date Type Department Care Team (Late st Contact Info) Description 04/02/2024 14:30 EDT Office Visit [facility] Pulmonology [address] [facility], [place] [address] Ray Samson MD [address] [facility], [address] [place] [address] documented as of this encounter Visit Diagnoses Not on filedocumented in this encounter Care Teams Tennis Centre Manager Relationship Specialty Start Date End Date Hernando Kumari MD [address] [facility] [address] [place] [address] PCP - General 08/09/19 12/26/20 documented as of this encounter
--- OUTSIDE RECORDS SUMMARY | 2024-03-12 16:22 | XMS_ITS | Encounter Summary ---
Author Organization [facility] Address [address] [place] [address] Care Team Providers Care Risk Management Internship Name Role Phone Hernando Kumari MD Primary Care Provider [phone] Felicia Ivan Primary Care Provider [phone] Reason for Visit * Reason Comments Other Encounter Details Date Type Department Care Team (Late st Contact Info) Description 09/13/2020 Refill [facility] Dermatology 5th [address] [id number] Sharri Mistry MD [address] [place] [address], [address] [place] [address] Other Social History Tobacco Use [...] TABLET BY MOUTH DAILY 30 Tab 1 09/13/2020 11/17/2020 documented in this encounter Miscellaneous Notes * Telephone Encounter - Jorge Gardiner MA - 09/13/2020 0809 EDT Medication: spironolactone (ALDACTONE) 100 mg tablet Diagnosis: acne Last Office Visit: 03/09/2020 Next Office Visit: 10/13/2020 Last Refill: 06/07/2020 documented in this encounter Plan of Treatment Upcoming Encounters Date Type Department Care Team (Late st Contact Info) Description 04/02/2024 14:30 EDT Office Visit [facility] Pulmonology [address] [facility], [place] [address] Ray Samson MD [address] [facility], [facility] 5 [place] [phone] documented as of this encounter Visit Diagnoses Diagnosis Acne vulgaris Other acne documented in this encounter Discontinued Medications Medication Sig Discontinue Reason Start Date End Da te spironolactone (ALDACTONE) 100 mg tabletIndications:Acne vulgaris TAKE 1 TABLET BY MOUTH DAILY 06/07/2020 09/13/2020 documented as of this encounter Care Teams Risk Management Internship Relationship Specialty Start Date End Date Hernando Kumari MD [facility] [employer] [address] [place] [phone] PCP - General 08/09/19 12/26/20 Felicia Ivan FNP [address], [address] [place], [place] [address] PCP - General 12/27/20 documented as of this encounter
--- OUTSIDE RECORDS SUMMARY | 2024-03-12 16:22 | XMS_ITS | Encounter Summary ---
Author Organization [facility] Address [address] [place] [address] Care Team Providers Care Tamping Machine Operator Name Role Phone Hernando Kumari MD Primary Care Provider [phone] Felicia Ivan Primary Care Provider Encounter Details Date Type Department Care Team (Late st Contact Info) Description 02/11/2020 Lab Requisition [facility] Pathology & Laboratory Medicine - [address] [address] Yang Ramirez, DMD [address] [address] Encounter for other general examination Social History Tobacco Use Types Packs/Day Years Used Date Smoking Tobacco: Never Assessed Interpersonal Safety Answer Date Record ed Physically [...] Info) Description 04/02/2024 14:30 EDT Office Visit [facility] Pulmonology [address] [place], [place] [address] Ray Samson MD [address] [facility], [address] [place] [address] documented as of this encounter Procedures Procedure Name Priority Date/Time Associated Diagnosis Comments SURGICAL PATHOLOGY Today 02/10/2020 12 :20 EDT Encounter for other general examination documented in this encounter Results * SURGICAL PATHOLOGY (02/10/2020 12:20 EDT) Final Diagnosis A. SKIN OF LIP, LOWER LEFT BUCCAL MUCOSA, SHAVE BIOPSY: - Angiofibroma. 02/13/2020 13:[address] [facility] Attestation By the signature below, the attending physician certifies that they have 1) personally conducted a gross and/or microscopic examination of the described specimen(s), and/or personally interpreted the results of laboratory testing of the described specimen(s), and 2) personally rendered or confirmed the above diagnosis. 02/13/2020 13:[address] [facility] at 1356 Clinical History Fibroma lower left lip 02/13/2020 13:[address] [facility] Gross Description A. Received in formalin labelled with proper patient identification (initials N, C) and buccal mucosa is a rubbery ovoid mucosal excision, 0.6 x 0.5 x 0.3 cm. The mucosal surface is dusky brown wyatt. The margin is inked. Bisected and entirely submitted in A1. Shi Ferraro 02/12/2020 7:50 02/13/2020 13:[address] [facility] Performing Lab [facility] 02/13/2020 13:[address] [facility] Scanned Images 02/13/2020 13:[address] [facility] Tissue ENTIRE LIP / Unknown 02/10/2020 12:20 EDT 02/11/2020 21:44 EDT Yang Ramirez DMD PATHOLOGY ORDERABLES [facility] [address] [place] [address] documented in this encounter Visit Diagnoses Diagnosis Encounter for other general examination documented in this encounter Care Teams Tamping Machine Operator Relationship Specialty Start Date End Date Hernando Kumari MD [facility] [address] [place] [address] PCP - General 08/09/19 12/26/20 Felicia Ivan FNP [facility] [address] [place] [address] PCP - General 12/27/20 documented as of this encounter
[2024-03-12 18:39] LABS: Abs Immature Grans 0.02 10^3/uL (0.0-0.06); Absolute Basophil Count 0.06 10^3/uL (0.0-0.2); Absolute Lymphocyte Count 1.94 10^3/uL (1.2-3.4); Absolute Monocyte Count 0.51 10^3/uL (0.1-0.8); Absolute Neutrophil Count 5.41 10^3/uL (1.2-6.7); Basophils % 0.7 %; Eosinophils % 9.2 %; HCT 36.7 % (36.0-46.0); HGB 13.1 g/dL (11.2-15.7); Immature Grans % 0.2 %; Lymphocytes % 22.2 %; MCH 29.6 pg (27.0-33.0); MCHC 35.7 % (32.0-36.0); MCV 83 fL (80-95); MPV 10.1 fL (8.0-11.0); Monocytes % 5.8 %; Neutrophils % 61.9 %; Platelet Count 252 10^3/uL (130-400); RBC 4.42 10^6/uL (3.93-5.22); RDW 14.4 % (11.7-14.6); RDW-SD 43.6 fL; WBC 8.74 10^3/uL (4.4-10.8)
[2024-03-12 19:16] LABS: ALT 21 U/L (14-59); AST 21 U/L (15-37); Albumin 3.5 g/dL (3.4-5.0); Alkaline Phosphatase 68 U/L (46-116); Anion Gap 9.1 mmol/L (3-11); BUN 8 mg/dL (7-18); Bilirubin, Total 0.38 mg/dL (0.2-1.0); CO2 23.9 mmol/L (21.0-32.0); CREATININE 0.8 mg/dL (0.55-1.02); Calcium 8.9 mg/dL (8.5-10.1); Calculated LDL 75 mg/dL (<100); Chloride 106 mmol/L (98-107); Cholesterol 172 mg/dL (<200); Glucose 102 mg/dL (74-106); HDL Cholesterol 74 mg/dL (40-60); Potassium 3.6 mmol/L (3.5-5.1); Sodium 139 mmol/L (136-145); Total Protein 7.8 g/dL (6.4-8.2); Triglyceride 117 mg/dL (<150); Vitamin B12 388 pg/mL (193-986); Vitamin D 25 Total 30.1 ng/mL (30-100)
[2024-03-12 19:17] LABS: Folate > 20.0 ng/mL (8.6-20.0)
== END 2024-03-12 16:20 | disposition home or self-care (01) ==
LOC: NCHCN 16:19
PROVIDERS: PCP Nurse Practitioner Family; Visit Provider Nurse Practitioner Family
DX: Z00.00 Encounter for general adult medical examination without abnormal findings (principal)
CPT/HCPCS: 80053; 80061; 82306; 82607; 82746; 85025